=== PATIENT | female | born 1960 | race Caucasian/White ===

== ENCOUNTER 2018-12-20 15:30 | Emergency (ER) | payer OTHER ==
[~2018-12-20] VITALS: Ht 165.1 cm; Wt 99.3 kg
--- OUTSIDE RECORDS SUMMARY | 2018-12-20 15:42 | XMS REPORT | Clinical Summary ---
Author Author [facility] Organization [facility] Address Unknown Phone Unavailable Care Team Providers Care Steam Table Worker Name Role Phone PCP Unavailable Allergies Comments Active Allergy Reactions Severity Noted Date Sulfamethoxazole-Trimetho Breathing 01/09/2014 prim problems, Rash Cefaclor Breathing 01/09/2014 problems Morphine Itching 01/09/2014 Penicillins Breathing 01/09/2014 problems, Rash Medications End Date Status Medication Sig Dispensed Refills Start Date Active aspirin (ASPIRIN) 81 mg Chew and 0 chewable tablet swallow 81 mg by mouth daily. Active ferrous sulfate 325 mg Take 325 mg 0 (65 mg iron) tablet by mouth daily (with breakfast). Active Nebulizer Accessories by 1 Each 0 MiscIndications: COPD Misc.(Non-Dereje 4 (chronic obstructive g; Combo pulmonary disease) Route) route. Active pantoprazole (PROTONIX) Take 1 tablet 90 tablet 1 40 mg delayed release by mouth 4 tabletIndications: GERD daily. (gastroesophageal reflux disease) Active Levalbuterol HCl Inhale 3 mL 75 mL 1 (XOPENEX) 0.31 mg/3 mL by mouth 4 nebulizer every 8 hours solutionIndications: COPD as needed for (chronic obstructive Wheezing or pulmonary disease) Shortness of Breath. Active blood glucose Use as 1 Kit 0 meterIndications: DM directed.. 4 (diabetes mellitus) Active blood glucose test 2 times 50 Each 11 stripsIndications: DM daily. 4 (diabetes mellitus) Active lancets 28 by 100 Each 11 gaugeIndications: DM MISCELLANEOUS 4 (diabetes mellitus) route 2 times daily. Active insulin needles, Use as 3 Box 11 disposable, (NOVOFINE 30) directed with 4 30 x 1/3 " novolog needlesIndications: DM flexpen. (diabetes mellitus) Active Levalbuterol Tartrate Inhale 2 30 g 5 (XOPENEX HFA) 45 Puffs by 4 mcg/actuation mouth every 4 inhalerIndications: hours as Asthmatic bronchitis needed for Wheezing or Shortness of Breath. Active budesonide-formoterol Inhale 2 30.6 g 5 (SYMBICORT HFA) 160-4.5 Puffs by 4 mcg/actuation mouth 2 times inhalerIndications: COPD daily. (chronic obstructive pulmonary disease), Asthmatic bronchitis Active Nebulizer & Compressor by 1 Device 0 For Neb DeviIndications: Misc.(Non-Dereje 4 COPD (chronic obstructive g; Combo pulmonary disease) Route) route. Active clotrimazole (LOTRIMIN) 1 File nails 30 mL 9 % external and apply 2 4 solutionIndications: drops twice a Onychomycosis day for 1 year. Active insulin lispro (HUMALOG) Inject 20 60 mL 1 100 unit/mL Units under 5 injectionIndications: DM the skin 3 (diabetes mellitus) times daily (before meals). Active blood glucose (RELION Test blood 200 Each 5 ULTIMA) test glucose 2 5 stripsIndications: Type times daily II or unspecified type to diabetes mellitus without mention of complication, uncontrolled Active lisinopril-hydrochlorothi Take 1 tablet 90 tablet 1 azide (PRINZIDE) 10-12.5 by mouth 5 mg per tabletIndications: daily. HTN (hypertension) Active carvedilol (COREG) 3.125 Take 1 tablet 180 tablet 1 mg tabletIndications: HTN by mouth 2 5 (hypertension) times daily (with meals). Active atorvastatin (LIPITOR) 20 Take 1 tablet 90 tablet 1 mg tabletIndications: by mouth at 5 Hypertriglyceridemia bedtime nightly. Active fenofibrate Take 1 tablet 90 tablet 1 nanocrystallized (TRICOR) by mouth 5 48 mg tabletIndications: daily. Hypertriglyceridemia Active INSULIN SYRINGE 1mL Use to inject 300 Syringe 4 30GX5/16" (MONOJECT insulin 2 5 ULTRACOMFORT INSULIN SYR times daily. 1ML 30GX5/16") Use a new syringe-needleIndications syringe each : DM (diabetes mellitus) time. Active INSULIN SYRINGE 0.5mL Use to inject 300 Syringe 4 30GX5/16" (ULTRA COMFORT) insulin 3 5 syringe-needleIndications times daily. : DM (diabetes mellitus) Use a new syringe each time. Active busPIRone (BUSPAR) 10 mg Take 10 mg by 0 tablet mouth 2 times daily. Active lamoTRIgine (LAMICTAL) 25 Take 25 mg by 0 mg tablet mouth daily. Active citalopram (CELEXA) 20 mg Take 20 mg by 0 tablet mouth daily. Active gabapentin (NEURONTIN) Please start 270 capsule 0 400 mg with 1 5 capsuleIndications: DM capsule daily (diabetes mellitus) for 1 week, Then increase to 1 capsule twice daily from second week and then Increase to 1 capsule three times daily from third week and continue it.. Active cetirizine (ZYRTEC) 10 mg Take 1 tablet 90 tablet 0 tabletIndications: by mouth 5 Seasonal allergies daily as needed for Allergies. Active insulin detemir (LEVEMIR) Inject 130 mL 0 100 unit/mL subcutaneous 5 injectionIndications: 65 units in Type II or unspecified the morning type diabetes mellitus and 75 units without mention of in the complication, evening with uncontrolled food.. Active metFORMIN (GLUCOPHAGE) Take 2 60 tablet 0 500 mg tabletIndications: tablets by 9 DM (diabetes mellitus) mouth 2 times daily (with meals). 05/07/2018 Discontinued metFORMIN (GLUCOPHAGE) Take 2 360 tablet 1 500 mg tabletIndications: tablets by 5 DM (diabetes mellitus) mouth 2 times daily (with meals). Active Problems Problem Noted Date Elevated alkaline phosphatase level 11/24/2014 Thyroid nodule 07/02/2014 Diabetic neuropathy 04/17/2014 Astigmatism with presbyopia 04/16/2014 Pseudophakia, both eyes 04/16/2014 Mild non proliferative diabetic retinopathy 04/16/2014 Type II or unspecified type diabetes mellitus without mention of 02/17/2014 complication, uncontrolled DM (diabetes mellitus) 02/02/2014 GERD (gastroesophageal reflux disease) 02/02/2014 HTN (hypertension) 02/02/2014 Hypertriglyceridemia 02/02/2014 H/O intravenous drug use in remission 02/02/2014 COPD (chronic obstructive pulmonary disease) 02/02/2014 Substance induced mood disorder PTSD (post-traumatic stress disorder) Cocaine use Alcohol use Cocaine use disorder, severe, dependence Encounters Care Team Description Date Type Specialty Payton Epperson III, MD Aoshima-Kilroy, Cristin A, MD Suicidal ideation (Primary Dx); Hyperglycemia; DM (diabetes mellitus); Substance induced mood disorder; PTSD (post-traumatic stress disorder); Cocaine use; Alcohol use; Cocaine use disorder, severe, dependence 05/07/2018 Emergency Emergency Medicine - 05/08/2018 05/07/2018 Travel after 12/19/2017 Immunizations Name Administration Dates Next Due Influenza Vaccine 03/05/2014 Family History Medical History Relation Name Comments Cancer Brother liver cancer Hypertension Brother Arthritis Father Heart Father Hypertension Father Stroke Father Arthritis Mother Asthma Mother Cancer Mother breast cancer Diabetes Mother Heart Mother Hypertension Mother Hypothyroid Mother Pulmonary Mother Arthritis Sister Asthma Sister Cancer Sister breast cancer Diabetes Sister Hypertension Sister Psychiatry Sister Pulmonary Sister Relation Name Status Comments Brother Alive Brother AIDS, LIVER CANCER Brother AIDS Brother Brother Father congestive heart failure (Age 72) Mother Breast cancer (Age 71) Sister Alive 2 sisters Sister Sister Sister Sister Sister Sister Sister Social History Date Tobacco Use Types Packs/Day Years Used Current Every Day Smoker Cigarettes 1 30 Smokeless Tobacco: Never Used Tobacco Cessation: Ready to Quit: No; Counseling Given: No Drinks/Week oz/Week Comments Alcohol Use Yes Sex Assigned at Date Recorded Not on file Industry Job Start Date Occupation Not on file Not on file Not on file Travel End Travel History Travel Start No recent travel history available. Last Filed Vital Signs Reading Time Taken Comments Vital Sign 160/103 05/08/2018 10:45 AM [facility] pt just ate snack; nurse notified, zackary Blood Pressure 98 05/08/2018 10:45 AM [facility] Pulse 36.4 C (97.5 F) 05/08/2018 10:45 AM [facility] Temperature 18 05/08/2018 10:45 AM [facility] Respiratory Rate 96% 05/08/2018 10:45 AM [facility] Oxygen Saturation - - Inhaled Oxygen Concentration 98.9 kg (218 lb) 05/08/2018 12:05 AM [facility] Weight 165.1 cm (5' 5") 05/08/2018 12:05 AM [facility] Height 36.28 05/08/2018 12:05 AM [facility] Body Mass Index Plan of Treatment Health Maintenance Due Date Last Done Comments DM Foot Exam (Yearly) 01/22/1980 Cervical Cancer Scrn (3 1983 Yrs) Colorectal Cancer Scrn 01/22/2012 Annual (FIT/FOBT) Age 50 to 75 DM Retinal Exam (Yearly) 04/16/2015 04/16/2014, 01/14/2014 Breast Cancer Scrn 05/26/2015 05/26/2014 (Yearly) DM HGBA1C (Yearly) 08/05/2015 08/04/2014, 01/14/2014 Procedures Comments Procedure Name Priority Date/Time Associated Diagnosis CONSULT CLINICAL CASE Routine 05/08/2018 MANAGEMENT (RN/SW) 9:56 AM [facility] POC GLUCOSE - IN LAB Routine 05/08/2018 (STAT) 6:35 AM [facility] POC GLUCOSE - IN LAB Routine 05/07/2018 (STAT) 11:53 PM [facility] IP CONSULT WITH INSIGHT Routine 05/07/2018 11:19 PM [facility] POC GLUCOSE - IN LAB Routine 05/07/2018 (STAT) 8:12 PM [facility] BMP POC Routine 05/07/2018 5:36 PM [facility] URINE DRUG SCREEN STAT 05/07/2018 5:32 PM [facility] ENVIRONMENTAL WEB CRAWLER Routine 05/07/2018 5:31 PM [facility] SALICYLATE STAT 05/07/2018 4:40 PM [facility] ACETAMINOPHEN STAT 05/07/2018 4:40 PM [facility] CBC (WITHOUT STAT 05/07/2018 DIFFERENTIAL) 4:40 PM [facility] after 12/19/2017 Results * GLUCOSE POC (05/08/2018 6:35 AM [facility]) Only the most recent of 3 results within the time period is included. Glucose POC 321 (H) 74 - 106 mg/dL BT [facility] 1 Specimen Performing Organization Address City/State/Zipcode Phone Number [facility] 1 * BMP POC (05/07/2018 5:36 PM [facility]) CO2 POC 27 21 - 32 mmol/L [facility] 1 Chloride POC 96 (L) 98 - 107 mmol/L BT [facility] 1 Potassium POC 3.7 3.50 - 5.10 mmol/L [facility] 1 Sodium POC 135 (L) 136 - 145 mmol/L BT [facility] 1 Glucose POC 334 (H) 74 - 106 mg/dL BT [facility] 1 Urea Nitrogen 15 7 - 18 mg/dL BT [facility] POC 1 Creatinine POC 0.5 (L) 0.6 - 1.3 mg/dL BT [facility] 1 Calcium Ionized 1.15 1.15 - 1.29 mmol/L BT [facility] POC 1 Hemoglobin POC 17.7 (H) 12.0 - 16.0 g/dL BT [facility] 1 Hematocrit POC 52.0 (H) 37.0 - 47.0 % BT [facility] 1 GFR, Estimated >60 mL/min/1.73 m2 BT [facility] 1 GFR, Estim, >60 mL/min/1.73 m2 BT [facility] Afr-Am 1 Specimen Performing Organization Address City/State/Zipcode Phone Number [facility] 1 * URINE DRUG SCREEN (05/07/2018 5:32 PM [facility]) Amphetamine Negative NEG [facility] Comment: 1 Calibrated Standard: D-Methamphetamine Positive if urine level >vm=0430 ng/mL Test performed on [id number] using EMIT Immunoassay Barbiturate Negative NEG BT [facility] Comment: 1 Calibrated Standard: Secobarbital Positive if urine level is >nz=415 ng/mL Test performed on [id number] using EMIT Immunoassay Benzodiazepine Negative NEG BT [facility] Comment: 1 Calibrated Standard: Lormethazepam Positive if urine level is >ml=303 ng/mL Test performed on [id number] using EMIT Immunoassay Cannabinoid Negative NEG BT [facility] Comment: 1 Calibrated Standard: 11 nor-delta(9)-THC carboxylic a Positive if urine level >or=50 Test performed on [id number] using EMIT Immunoassay Cocaine Positive (A) NEG BT [facility] Comment: 1 Calibrated Standard: Benzoylecgonine Positive if urine level >zn=283 Test performed on [id number] using EMIT Immunoassay Opiate, Ur Negative NEG BT [facility] Comment: 1 Calibrated Standard: Morphine Positive if urine level >ea=031 Test performed on [id number] using EMIT Immunoassay PCP Negative NEG BT [facility] Comment: 1 Calibrated Standard: Phencyclidine Positive if urine level >or=25 Test performed on [id number] using EMIT Immunoassay Urine Toxicology Screen results are to be used only for Medical purposes. Specimen Urine Performing Organization Address [facility] Phone Number [facility] 1 * SALICYLATE (05/07/2018 4:40 PM [facility]) Salicylate <2.5 (L)Comment: Test 2.8 - 30 mg/dL BT MAIN-STATION performed on [id number] using EMIT 1 Immunoassay Specimen Blood Performing Organization Address [facility] Phone Number [facility] 1 * CBC (05/07/2018 4:40 PM [facility]) WBC 9.8 4.5 - 11.0 K/uL BT MAIN-STATION 2 RBC 5.86 (H) 4.20 - 5.40 M/uL BT MA[facility] 2 Hemoglobin 15.7 12.0 - 16.0 g/dL BT MAIN-ST[facility] 2 Hematocrit 47.2 (H) 37.0 - 47.0 % BT [facility] 2 MCV 81 (L) 82 - 92 fL BT MAIN-[facility] 2 MCH 26.8 (L) 27.0 - 32.0 pg BT MAIN-STATION 2 MCHC 33.3 32.0 - 36.0 g/dL BT MA[facility] 2 RDW 43.8 36.4 - 46.3 fL BT MAIN-STATION 2 Platelets 296 150 - 400 K/uL BT MAIN[facility]ATION 2 Mean Platelet 9.9 9.4 - 12.4 fL BT [facility] Volume 2 Percent NRBC 0.0 BT MAIN-STATION 2 Absolute NRBC 0.00 BT MAIN-STATION 2 Specimen Blood Performing Organization Address [facility] Phone Number [facility] 2 * ACETAMINOPHEN (05/07/2018 4:40 PM [facility]) Acetaminophen <10.00 (L)Comment: Test 10 - 30 ug/mL BT MAIN-[facility]ATION performed on [id number] using EMIT 1 Immunoassay Specimen Blood Performing Organization Address [facility] Phone Number [facility] 1 after 12/19/2017 Insurance Type Payer Benefit Subscriber ID Effective Phone Address Plan / Dates Group [facility] xxxxxxxxx 2016- [phone] [employer] Present [id number] [place] [address] (Home) [place] [address]
--- OUTSIDE RECORDS SUMMARY | 2018-12-20 15:42 | XMS REPORT ---
[facility] Address Unknown Phone Unavailable Care Team Providers Care Take Down Inspector Name Role Phone DR Britt CHASE Unavailable Unavailable Payers Payer Name Policy Type Policy Number Effective Date Expiration Date Problems This patient has no known problems. Allergies, Adverse Reactions, Alerts Allergy Name Allergy Type Status Severity Reaction(s) Onset Date Inactive Date Treating Clinician Comments Penicillins DA Active 2018-12-13 00:00:00 Sulfa (Sulfonamide Antibiotics) DA Active U 2018-12-13 00:00:00 morphine DA Active U 2018-12-13 00:00:00 cefaclor DA Active MO 2018-12-13 00:00:00 sulfamethoxazole DA Active 2018-12-13 00:00:00 trimethoprim DA Active SV 2018-12-13 00:00:00 Penicillins DA Active SV 2018-08-26 00:00:00 Sulfa (Sulfonamide Antibiotics) DA Active U 2018-08-26 00:00:00 morphine DA Active U 2018-08-26 00:00:00 cefaclor DA Active MO 2018-08-26 00:00:00 sulfamethoxazole DA Active SV 2018-08-26 00:00:00 trimethoprim DA Active SV 2018-08-26 00:00:00 Penicillins DA Active SV 2018-07-13 00:00:00 Sulfa (Sulfonamide Antibiotics) DA Active U 2018-07-13 00:00:00 morphine DA Active U 2018-07-13 00:00:00 cefaclor DA Active MO 2018-07-13 00:00:00 sulfamethoxazole DA Active SV 2018-07-13 00:00:00 trimethoprim DA Active SV 2018-07-13 00:00:00 Penicillins DA Active SV 2017-03-17 00:00:00 Sulfa (Sulfonamide Antibiotics) DA Active U 2017-03-17 00:00:00 morphine DA Active U 2017-03-17 00:00:00 cefaclor DA Active MO 2017-03-17 00:00:00 sulfamethoxazole DA Active SV 2017-03-17 00:00:00 trimethoprim DA Active SV 2017-03-17 00:00:00 Medications This patient has no known medications. Encounters Start Date/Time End Date/Time Encounter Type Admission Type Attending [facility] Facility Care Department Encounter ID 2018-05-15 18:01:00 2018-05-15 23:05:00 Emergency [facility] [id number] 2018-05-07 16:43:36 2018-05-07 16:43:36 Emergency [facility] [id number] Results Test Description Test Time Test Comments Text Results Atomic Results Result Comments BASIC METABOLIC PANEL 2018-12-13 21:46:00 SODIUM (test code=NA) 137 mmol/L 136-145 POTASSIUM (test code=K) 4.2 mmol/L 3.5-5.1 CHLORIDE (test code=CL) 99.0 mmol/L 98-107 CARBON DIOXIDE (test code=CO2) 26.0 mmol/L 21-32 ANION GAP (test code=GAP) 16.2 10-20 GLUCOSE (test code=GLU) 383 mg/dL 74-106 BLOOD UREA NITROGEN (test code=BUN) 15 mg/dL 7-18 GLOMERULAR FILTRATION RATE (test code=GFR) > 60 mL/min >=60 Estimated GFR by using Modified MDRD formula.Chronic kidney disease is defined as either kidney damageor GFR <60 mL/min/1.73 m2 for >3 months. CREATININE (test code=CREAT) 0.90 mg/dL 0.55-1.02 Note change in reference range due to change in reagent. BUN/CREATININE RATIO (test code=BUN/CREA) 17.1 10-20 CALCIUM (test code=CA) 9.8 mg/dL 8.5-10.1 HEPATIC FUNCTION [id number] 21:46:00* Test Item Value Reference Range Comments TOTAL PROTEIN (test code=PROT) 7.8 gram/dL 6.4-8.2 ALBUMIN (test code=ALB) 3.8 g/dL 3.4-5.0 GLOBULIN (test code=GLOB) 4.0 gram/dL 2.7-4.2 ALBUMIN/GLOBULIN RATIO (test code=A/G) 1.0 0.75-1.50 BILIRUBIN TOTAL (test code=BILT) 0.40 mg/dL 0.0-1.0 BILIRUBIN DIRECT (test code=BILD) 0.10 mg/dL 0.0-0.20 SGOT/AST (test code=AST) 12 IUnit/L 15-37 SGPT/ALT (test code=ALT) 19 IUnit/L 12-78 ALKALINE PHOSPHATASE TOTAL (test code=ALKP) 151 IUnit/L 45-117 Note change in reference range due to change in reagent. [id number] 21:46:00* Test Item Value Reference Range Comments LIPASE (test code=LIP) 95 U/L 73.0-393.0 BASIC METABOLIC [id number] 21:30:00* Test Item Value Reference Range Comments SODIUM (test code=NA) 137 mmol/L 136-145 POTASSIUM (test code=K) 4.2 mmol/L 3.5-5.1 CHLORIDE (test code=CL) 99.0 mmol/L 98-107 CARBON DIOXIDE (test code=CO2) mmol/L 21-32 ANION GAP (test code=GAP) 10-20 GLUCOSE (test code=GLU) mg/dL 74-106 BLOOD UREA NITROGEN (test code=BUN) mg/dL 7-18 GLOMERULAR FILTRATION RATE (test code=GFR) mL/min >=60 CREATININE (test code=CREAT) mg/dL 0.55-1.02 BUN/CREATININE RATIO (test code=BUN/CREA) 10-20 CALCIUM (test code=CA) mg/dL 8.5-10.1 HEPATIC FUNCTION [id number] 21:30:00* Test Item Value Reference Range Comments TOTAL PROTEIN (test code=PROT) gram/dL 6.4-8.2 ALBUMIN (test code=ALB) g/dL 3.4-5.0 GLOBULIN (test code=GLOB) gram/dL 2.7-4.2 ALBUMIN/GLOBULIN RATIO (test code=A/G) 0.75-1.50 BILIRUBIN TOTAL (test code=BILT) mg/dL 0.0-1.0 BILIRUBIN DIRECT (test code=BILD) mg/dL 0.0-0.20 SGOT/AST (test code=AST) IUnit/L 15-37 SGPT/ALT (test code=ALT) IUnit/L 12-78 ALKALINE PHOSPHATASE TOTAL (test code=ALKP) IUnit/L 45-117 [id number] 21:30:00* Test Item Value Reference Range Comments LIPASE (test code=LIP) U/L 73.0-393.0 URINALYSIS [id number] 21:03:00* Test Item Value Reference Range Comments UA COLOR (test code=COLU) Light-Yellow YELLOW UA APPEARANCE (test code=APPU) CLEAR CLEAR UA GLUCOSE DIPSTICK (test code=DGLUU) >1000 (4+) mg/dL NEGATIVE UA BILIRUBIN DIPSTICK (test code=BILU) NEGATIVE mg/dL NEGATIVE UA KETONE DIPSTICK (test code=KETU) NEGATIVE mg/dL NEGATIVE UA SPECIFIC GRAVITY (test code=SGU) 1.038 1.001-1.035 UA BLOOD DIPSTICK (test code=DORINA) Negative mg/dL NEGATIVE UA PH DIPSTICK (test code=DANIELA) 6.0 5.0-8.0 UA PROTEIN DIPSTICK (test code=PROU) 10 (Trace) mg/dL NEGATIVE UA UROBILINIOGEN DIPSTICK (test code=URO) Normal mg/dL NEGATIVE UA NITRITE DIPSTICK (test code=CATE) NEGATIVE NEGATIVE UA LEUKOCYTE ESTERASE W REFLEX (test code=LEUUR) 250 Cheli/uL (2+) Cheli/uL NEGATIVE UA WBC (test code=WBCU) 11-20 per HPF 0-5 UA RBC (test code=RBCU) 3-5 #/HPF 0-5 UA EPITHELIAL CELLS (test code=EPIU) MOD per HPF FEW UA BACTERIA (test code=BACU) NONE SEEN #/HPF NONE UA HYALINE CAST (test code=HYALU) 0-2 #/LPF 0-5 UA MUCUS (test code=MUCU) FEW #/LPF FEW Urine Source? Clean [id number] 21:01:00* Test Item Value Reference Range Comments GLYCOSYLATED HEMOGLOBIN (HA1C) (test code=GLYHGB) 10.4 % HbA1 4.8-6.0 ESTIMATED AVERAGE GLUCOSE (test code=EAG) 252 MG/DL CBC W/O [id number] 20:32:00* Test Item Value Reference Range Comments WHITE BLOOD CELL (test code=WBC) 10.4 K/mm3 4.5-12.5 RED BLOOD CELL (test code=RBC) 5.15 mill/mm3 3.7-5.2 HEMOGLOBIN (test code=HGB) 14.3 gram/dL 11.5-15.5 HEMATOCRIT (test code=HCT) 41.2 % 36.0-46.0 MEAN CELL VOLUME (test code=MCV) 80.0 fL 80-98 MEAN CELL HGB (test code=MCH) 27.8 picogram 27.0-33.0 MEAN CELL HGB CONCETRATION (test code=MCHC) 34.7 gram/dL 33.0-36.0 RED CELL DISTRIBUTION WIDTH (test code=RDW) 14.0 % 11.6-16.2 PLATELET COUNT (test code=PLT) 273 K/mm3 150-450 MEAN PLATELET VOLUME (test code=MPV) 9.5 fL 6.7-11.0 CBC W/O [id number] 20:28:00* Test Item Value Reference Range Comments WHITE BLOOD CELL (test code=WBC) K/mm3 4.5-12.5 RED BLOOD CELL (test code=RBC) mill/mm3 3.7-5.2 HEMOGLOBIN (test code=HGB) 14.3 gram/dL 11.5-15.5 HEMATOCRIT (test code=HCT) 41.2 % 36.0-46.0 MEAN CELL VOLUME (test code=MCV) fL 80-98 MEAN CELL HGB (test code=MCH) picogram 27.0-33.0 MEAN CELL HGB CONCETRATION (test code=MCHC) gram/dL 33.0-36.0 RED CELL DISTRIBUTION WIDTH (test code=RDW) % 11.6-16.2 PLATELET COUNT (test code=PLT) K/mm3 150-450 MEAN PLATELET VOLUME (test code=MPV) fL 6.7-11.0 [id number] 16:44:00* Test Item Value Reference Range Comments GLUBED (test code=GLUBED) 223 mg/dL 74-106 [facility] [id number] 12:34:00* Test Item Value Reference Range Comments GLUBED (test code=GLUBED) 171 mg/dL 74-106 [facility] tailing machine [facility] [id number] 09:08:00* Test Item Value Reference Range Comments GLUBED (test code=GLUBED) 254 mg/dL 74-106 [facility] tailing machine [facility] VANCOMYCIN [id number] 05:29:00* Test Item Value Reference Range Comments VANCOMYCIN TROUGH (test code=VANCT) 6.0 ug/mL 10-20 SPECIMEN COMMENTS: VANC TROUGH COMMENTS TO CATCHER FILTER TIP: PLEASE DRAW 30 MIN PRIO R TO DOSEBASIC METABOLIC [id number] 05:23:00* Test Item Value Reference Range Comments SODIUM (test code=NA) 139 mmol/L 136-145 POTASSIUM (test code=K) 4.3 mmol/L 3.5-5.1 CHLORIDE (test code=CL) 106.0 mmol/L 98-107 CARBON DIOXIDE (test code=CO2) 29.0 mmol/L 21-32 ANION GAP (test code=GAP) 8.3 10-20 GLUCOSE (test code=GLU) 244 mg/dL 74-106 BLOOD UREA NITROGEN (test code=BUN) 17 mg/dL 7-18 GLOMERULAR FILTRATION RATE (test code=GFR) > 60 mL/min >=60 Estimated GFR by using Modified MDRD formula.Chronic kidney disease is defined as either kidney damageor GFR <60 mL/min/1.73 m2 for >3 months. CREATININE (test code=CREAT) 0.60 mg/dL 0.55-1.02 Note change in reference range due to change in reagent. BUN/CREATININE RATIO (test code=BUN/CREA) 28.3 10-20 CALCIUM (test code=CA) 8.7 mg/dL 8.5-10.1 BASIC METABOLIC [id number] 05:16:00* Test Item Value Reference Range Comments SODIUM (test code=NA) 139 mmol/L 136-145 POTASSIUM (test code=K) 4.3 mmol/L 3.5-5.1 CHLORIDE (test code=CL) 106.0 mmol/L 98-107 CARBON DIOXIDE (test code=CO2) mmol/L 21-32 ANION GAP (test code=GAP) 10-20 GLUCOSE (test code=GLU) mg/dL 74-106 BLOOD UREA NITROGEN (test code=BUN) mg/dL 7-18 GLOMERULAR FILTRATION RATE (test code=GFR) mL/min >=60 CREATININE (test code=CREAT) mg/dL 0.55-1.02 BUN/CREATININE RATIO (test code=BUN/CREA) 10-20 CALCIUM (test code=CA) mg/dL 8.5-10.1 CBC W/AUTO [id number] 05:03:00* Test Item Value Reference Range Comments WHITE BLOOD CELL (test code=WBC) 6.5 K/mm3 4.5-12.5 RED BLOOD CELL (test code=RBC) 4.44 mill/mm3 3.7-5.2 HEMOGLOBIN (test code=HGB) 12.0 gram/dL 11.5-15.5 HEMATOCRIT (test code=HCT) 36.5 % 36.0-46.0 MEAN CELL VOLUME (test code=MCV) 82.2 fL 80-98 MEAN CELL HGB (test code=MCH) 27.0 picogram 27.0-33.0 MEAN CELL HGB CONCETRATION (test code=MCHC) 32.9 gram/dL 33.0-36.0 RED CELL DISTRIBUTION WIDTH (test code=RDW) 13.3 % 11.6-16.2 RED CELL DISTRIBUTION WIDTH SD (test code=RDW-SD) 39.8 fL 37.0-51.0 PLATELET COUNT (test code=PLT) 219 K/mm3 150-450 MEAN PLATELET VOLUME (test code=MPV) 8.9 fL 6.7-11.0 NEUTROPHIL % (test code=NT%) 53.7 % 39.0-69.0 IMMATURE GRANULOCYTE % (test code=IG%) 0.3 % 0.0-5.0 LYMPHOCYTE % (test code=LY%) 38.0 % 25.0-55.0 MONOCYTE % (test code=MO%) 6.0 % 0.0-10.0 EOSINOPHIL % (test code=EO%) 1.8 % 0.0-5.0 BASOPHIL % (test code=BA%) 0.2 % 0.0-1.0 NUCLEATED RBC % (test code=NRBC%) 0.0 % 0-0 NEUTROPHIL # (test code=NT#) 3.49 K/mm3 1.8-7.7 IMMATURE GRANULOCYTE # (test code=IG#) 0.02 x10 3/uL 0-0.03 LYMPHOCYTE # (test code=LY#) 2.47 K/mm3 1.0-5.0 MONOCYTE # (test code=MO#) 0.39 K/mm3 0-0.8 EOSINOPHIL # (test code=EO#) 0.12 K/mm3 0.0-0.5 BASOPHIL # (test code=BA#) 0.01 K/mm3 0.0-0.2 NUCLEATED RBC # (test code=NRBC#) 0.00 K/mm3 0.0-0.1 CBC W/AUTO [id number] 04:59:00* Test Item Value Reference Range Comments WHITE BLOOD CELL (test code=WBC) K/mm3 4.5-12.5 RED BLOOD CELL (test code=RBC) mill/mm3 3.7-5.2 HEMOGLOBIN (test code=HGB) 12.0 gram/dL 11.5-15.5 HEMATOCRIT (test code=HCT) 36.5 % 36.0-46.0 MEAN CELL VOLUME (test code=MCV) fL 80-98 MEAN CELL HGB (test code=MCH) picogram 27.0-33.0 MEAN CELL HGB CONCETRATION (test code=MCHC) gram/dL 33.0-36.0 RED CELL DISTRIBUTION WIDTH (test code=RDW) % 11.6-16.2 RED CELL DISTRIBUTION WIDTH SD (test code=RDW-SD) fL 37.0-51.0 PLATELET COUNT (test code=PLT) K/mm3 150-450 MEAN PLATELET VOLUME (test code=MPV) fL 6.7-11.0 NEUTROPHIL % (test code=NT%) % 39.0-69.0 IMMATURE GRANULOCYTE % (test code=IG%) % 0.0-5.0 LYMPHOCYTE % (test code=LY%) % 25.0-55.0 MONOCYTE % (test code=MO%) % 0.0-10.0 EOSINOPHIL % (test code=EO%) % 0.0-5.0 BASOPHIL % (test code=BA%) % 0.0-1.0 NEUTROPHIL # (test code=NT#) K/mm3 1.8-7.7 LYMPHOCYTE # (test code=LY#) K/mm3 1.0-5.0 MONOCYTE # (test code=MO#) K/mm3 0-0.8 EOSINOPHIL # (test code=EO#) K/mm3 0.0-0.5 BASOPHIL # (test code=BA#) K/mm3 0.0-0.2 [id number] 23:39:00* Test Item Value Reference Range Comments GLUBED (test code=GLUBED) 237 mg/dL 74-106 [facility]formed by certified tailing [facility] [id number] 20:49:00* Test Item Value Reference Range Comments GLUBED (test code=GLUBED) 303 mg/dL 74-106 Performed by certified tailing machine [facility] VANCOMYCIN [id number] 19:21:00* Test Item Value Reference Range Comments VANCOMYCIN TROUGH (test code=VANCT) 24.0 ug/mL 10-20 [id number] 17:04:00* Test Item Value Reference Range Comments GLUBED (test code=GLUBED) 279 mg/dL 74-106 Performed by certified tailing machine operator [facility] - MRI LOW EXT W/O CONT [id number] 11:53:00 FAX: Joseph West MD [phone] [place]: [address] St: [facility] FAX: Jyotsna Marin MD [phone] Name: FRANCINE ENCARNACION [facility] : 1960 Age/S: 58/F Gene Smith Unit #: [id number] Loc: [id number] [address] [address] Phys: Jyotsna Marin MD Acct: [id number] Dis Date: Status: ADM IN PHONE #: [phone] Exam Date: 08/28/2018 1138 FAX #: [phone] Reason: rule out osteomyelitis EXAMS: CPT CODE: [id number] MRI L[place] EX[place] W/[place] [address] HISTORY: Osteomyelitis. COMPARISON: August 26, 2018 and August 08, 2018 MRI right foot without contrast: No bony erosion or destruction or significant edematous changes of the fo refoot. No evidence for osteomyelitis. Soft tissue swelling along the plan tar surface of the first digit suggestive of cellulitis. No drainable absc ess or fluid collections. The visualized tarsal bones are unremarkable. Tendinitis with and moderate peritendinous fluid along the flexor hallucis tendon. Rest of the visualized tendons appear unremarkable. A chilles tendon is within normal limits. Sinus tarsi ligaments are unremark able. No osteochondral lesion of the talus. Unremarkable sinus tarsi ligam ents. IMPRESSION: Cellulitis of the distal fi rst phalanx without drainable abscess mostly along the plantar surface. No osteomyelitis or erosive or destructive change. Mild tendinitis of th e flexor hallucis longus tendon. at 1153 Reported and emma d by: Robert Hill M.D. CC: Joseph Wets MD; Jyotsna Marin Technologist: Danie Herrera)(MR) Trnscrd Date/Time/By: 08/28/2018 (6965) : By: [email or web address] Orig P rint D/T: S: 08/28/2018 (6160) PAGE 1 Signed Report [id number] 08:59:00* Test Item Value Reference Range Comments GLUBED (test code=GLUBED) 184 mg/dL 74-106 Performed by certified tailing machine operator [facility] BASIC METABOLIC [id number] 05:27:00* Test Item Value Reference Range Comments SODIUM (test code=NA) 137 mmol/L 136-145 POTASSIUM (test code=K) 4.2 mmol/L 3.5-5.1 CHLORIDE (test code=CL) 104.0 mmol/L 98-107 CARBON DIOXIDE (test code=CO2) 27.0 mmol/L 21-32 ANION GAP (test code=GAP) 10.2 10-20 GLUCOSE (test code=GLU) 248 mg/dL 74-106 BLOOD UREA NITROGEN (test code=BUN) 20 mg/dL 7-18 GLOMERULAR FILTRATION RATE (test code=GFR) > 60 mL/min >=60 Estimated GFR by using Modified MDRD formula.Chronic kidney disease is defined as either kidney damageor GFR <60 mL/min/1.73 m2 for >3 months. CREATININE (test code=CREAT) 0.60 mg/dL 0.55-1.02 Note change in reference range due to change in reagent. BUN/CREATININE RATIO (test code=BUN/CREA) 33.3 10-20 CALCIUM (test code=CA) 8.6 mg/dL 8.5-10.1 BASIC METABOLIC [id number] 05:18:00* Test Item Value Reference Range Comments SODIUM (test code=NA) 137 mmol/L 136-145 POTASSIUM (test code=K) 4.2 mmol/L 3.5-5.1 CHLORIDE (test code=CL) 104.0 mmol/L 98-107 CARBON DIOXIDE (test code=CO2) mmol/L 21-32 ANION GAP (test code=GAP) 10-20 GLUCOSE (test code=GLU) mg/dL 74-106 BLOOD UREA NITROGEN (test code=BUN) mg/dL 7-18 GLOMERULAR FILTRATION RATE (test code=GFR) mL/min >=60 CREATININE (test code=CREAT) mg/dL 0.55-1.02 BUN/CREATININE RATIO (test code=BUN/CREA) 10-20 CALCIUM (test code=CA) mg/dL 8.5-10.1 BASIC METABOLIC [id number] 05:18:00* Test Item Value Reference Range Comments SODIUM (test code=NA) 137 mmol/L 136-145 POTASSIUM (test code=K) 4.2 mmol/L 3.5-5.1 CHLORIDE (test code=CL) 104.0 mmol/L 98-107 CARBON DIOXIDE (test code=CO2) 27.0 mmol/L 21-32 ANION GAP (test code=GAP) 10.2 10-20 GLUCOSE (test code=GLU) mg/dL 74-106 BLOOD UREA NITROGEN (test code=BUN) 20 mg/dL 7-18 GLOMERULAR FILTRATION RATE (test code=GFR) mL/min >=60 CREATININE (test code=CREAT) mg/dL 0.55-1.02 BUN/CREATININE RATIO (test code=BUN/CREA) 10-20 CALCIUM (test code=CA) 8.6 mg/dL 8.5-10.1 CBC W/AUTO [id number] 05:07:00* Test Item Value Reference Range Comments WHITE BLOOD CELL (test code=WBC) 6.9 K/mm3 4.5-12.5 RED BLOOD CELL (test code=RBC) 4.30 mill/mm3 3.7-5.2 HEMOGLOBIN (test code=HGB) 11.6 gram/dL 11.5-15.5 HEMATOCRIT (test code=HCT) 35.9 % 36.0-46.0 MEAN CELL VOLUME (test code=MCV) 83.5 fL 80-98 MEAN CELL HGB (test code=MCH) 27.0 picogram 27.0-33.0 MEAN CELL HGB CONCETRATION (test code=MCHC) 32.3 gram/dL 33.0-36.0 RED CELL DISTRIBUTION WIDTH (test code=RDW) 13.5 % 11.6-16.2 RED CELL DISTRIBUTION WIDTH SD (test code=RDW-SD) 41.2 fL 37.0-51.0 PLATELET COUNT (test code=PLT) 190 K/mm3 150-450 MEAN PLATELET VOLUME (test code=MPV) 9.0 fL 6.7-11.0 NEUTROPHIL % (test code=NT%) 49.3 % 39.0-69.0 IMMATURE GRANULOCYTE % (test code=IG%) 0.4 % 0.0-5.0 LYMPHOCYTE % (test code=LY%) 42.5 % 25.0-55.0 MONOCYTE % (test code=MO%) 5.9 % 0.0-10.0 EOSINOPHIL % (test code=EO%) 1.6 % 0.0-5.0 BASOPHIL % (test code=BA%) 0.3 % 0.0-1.0 NUCLEATED RBC % (test code=NRBC%) 0.0 % 0-0 NEUTROPHIL # (test code=NT#) 3.40 K/mm3 1.8-7.7 IMMATURE GRANULOCYTE # (test code=IG#) 0.03 x10 3/uL 0-0.03 LYMPHOCYTE # (test code=LY#) 2.94 K/mm3 1.0-5.0 MONOCYTE # (test code=MO#) 0.41 K/mm3 0-0.8 EOSINOPHIL # (test code=EO#) 0.11 K/mm3 0.0-0.5 BASOPHIL # (test code=BA#) 0.02 K/mm3 0.0-0.2 NUCLEATED RBC # (test code=NRBC#) 0.00 K/mm3 0.0-0.1 MANUAL DIFF REQUIRED (test code=MDIFF) NO [id number] 21:28:00* Test Item Value Reference Range Comments GLUBED (test code=GLUBED) 281 mg/dL 74-106 Performed by certified tailing machine operator at [facility] [id number] 16:55:00* Test Item Value Reference Range Comments GLUBED (test code=GLUBED) 250 mg/dL 74-106 Performed by certified tailing machine operator at [facility] PROCALCITONIN (PCT)2018-08-27 14:49:00* Test Item Value Reference Range Comments PROCALCITONIN (PCT) (test code=PROCAL) < 0.05 ng/ml Concentration Interpretation (ng/mL) <0.51 Sepsis is not likely. Local bacterial infection is possible. (LOW RISK for progression to Sepsis) 0.51 - 2.00 Sepsis is possible, but other conditions are known to elevate PCT as well. (MODERATE RISK for progression to Sepsis) > 2.00 Sepsis is likely, unless other causes are known. (HIGH RISK for progression to Severe Sepsis or Septic Shock) 10.00 High likelihood of Severe Sepsis or Septic or higher Shock. *Increased PCT levels may not always be related to systemic bacterial infection.*Low PCT levels do not automatically exclude the presence of bacterial infection.*All results should be interpreted taking into account the patients history. C REACTIVE [id number] 14:22:00* Test Item Value Reference Range Comments C REACTIVE PROTEIN (test code=CRP) 3.99 mg/dL 0-0.3 [id number] 12:12:00* Test Item Value Reference Range Comments GLUBED (test code=GLUBED) 233 mg/dL 74-106 Performed by certified tailing machine operator at [facility] CBC W/AUTO [id number] 12:07:00* Test Item Value Reference Range Comments WHITE BLOOD CELL (test code=WBC) 8.1 K/mm3 4.5-12.5 RED BLOOD CELL (test code=RBC) 4.46 mill/mm3 3.7-5.2 HEMOGLOBIN (test code=HGB) 12.1 gram/dL 11.5-15.5 HEMATOCRIT (test code=HCT) 37.5 % 36.0-46.0 MEAN CELL VOLUME (test code=MCV) 84.1 fL 80-98 MEAN CELL HGB (test code=MCH) 27.1 picogram 27.0-33.0 MEAN CELL HGB CONCETRATION (test code=MCHC) 32.3 gram/dL 33.0-36.0 RED CELL DISTRIBUTION WIDTH (test code=RDW) 13.6 % 11.6-16.2 RED CELL DISTRIBUTION WIDTH SD (test code=RDW-SD) 42.0 fL 37.0-51.0 PLATELET COUNT (test code=PLT) 185 K/mm3 150-450 RESULT VERIFIED BY REPEAT ANALYSIS MEAN PLATELET VOLUME (test code=MPV) 9.3 fL 6.7-11.0 NEUTROPHIL % (test code=NT%) 66.4 % 39.0-69.0 IMMATURE GRANULOCYTE % (test code=IG%) 0.5 % 0.0-5.0 LYMPHOCYTE % (test code=LY%) 25.7 % 25.0-55.0 MONOCYTE % (test code=MO%) 5.6 % 0.0-10.0 EOSINOPHIL % (test code=EO%) 1.7 % 0.0-5.0 BASOPHIL % (test code=BA%) 0.1 % 0.0-1.0 NUCLEATED RBC % (test code=NRBC%) 0.0 % 0-0 NEUTROPHIL # (test code=NT#) 5.34 K/mm3 1.8-7.7 IMMATURE GRANULOCYTE # (test code=IG#) 0.04 x10 3/uL 0-0.03 LYMPHOCYTE # (test code=LY#) 2.07 K/mm3 1.0-5.0 MONOCYTE # (test code=MO#) 0.45 K/mm3 0-0.8 EOSINOPHIL # (test code=EO#) 0.14 K/mm3 0.0-0.5 BASOPHIL # (test code=BA#) 0.01 K/mm3 0.0-0.2 NUCLEATED RBC # (test code=NRBC#) 0.00 K/mm3 0.0-0.1 MANUAL DIFF REQUIRED (test code=MDIFF) NO, ONLY SCAN NEEDED DIFFERENTIAL [id number] 12:07:00* Test Item Value Reference Range Comments STAIN ACCEPTABILITY (test code=STN ACCEPTABLE) STAIN ACCEPTABLE PLATELET ESTIMATE (test code=PLTEST) ADEQUATE PLATELET MORPHOLOGY (test code=PLTMORPH) NORMAL CBC W/AUTO [id number] 11:15:00* Test Item Value Reference Range Comments WHITE BLOOD CELL (test code=WBC) 8.1 K/mm3 4.5-12.5 RED BLOOD CELL (test code=RBC) 4.46 mill/mm3 3.7-5.2 HEMOGLOBIN (test code=HGB) 12.1 gram/dL 11.5-15.5 HEMATOCRIT (test code=HCT) 37.5 % 36.0-46.0 MEAN CELL VOLUME (test code=MCV) 84.1 fL 80-98 MEAN CELL HGB (test code=MCH) 27.1 picogram 27.0-33.0 MEAN CELL HGB CONCETRATION (test code=MCHC) 32.3 gram/dL 33.0-36.0 RED CELL DISTRIBUTION WIDTH (test code=RDW) 13.6 % 11.6-16.2 RED CELL DISTRIBUTION WIDTH SD (test code=RDW-SD) 42.0 fL 37.0-51.0 PLATELET COUNT (test code=PLT) 185 K/mm3 150-450 RESULT VERIFIED BY REPEAT ANALYSIS MEAN PLATELET VOLUME (test code=MPV) 9.3 fL 6.7-11.0 NEUTROPHIL % (test code=NT%) 66.4 % 39.0-69.0 IMMATURE GRANULOCYTE % (test code=IG%) 0.5 % 0.0-5.0 LYMPHOCYTE % (test code=LY%) 25.7 % 25.0-55.0 MONOCYTE % (test code=MO%) 5.6 % 0.0-10.0 EOSINOPHIL % (test code=EO%) 1.7 % 0.0-5.0 BASOPHIL % (test code=BA%) 0.1 % 0.0-1.0 NUCLEATED RBC % (test code=NRBC%) 0.0 % 0-0 NEUTROPHIL # (test code=NT#) 5.34 K/mm3 1.8-7.7 IMMATURE GRANULOCYTE # (test code=IG#) 0.04 x10 3/uL 0-0.03 LYMPHOCYTE # (test code=LY#) 2.07 K/mm3 1.0-5.0 MONOCYTE # (test code=MO#) 0.45 K/mm3 0-0.8 EOSINOPHIL # (test code=EO#) 0.14 K/mm3 0.0-0.5 BASOPHIL # (test code=BA#) 0.01 K/mm3 0.0-0.2 NUCLEATED RBC # (test code=NRBC#) 0.00 K/mm3 0.0-0.1 MANUAL DIFF REQUIRED (test code=MDIFF) NO, ONLY SCAN NEEDED DIFFERENTIAL [id number] 11:15:00* Test Item Value Reference Range Comments STAIN ACCEPTABILITY (test code=STN ACCEPTABLE) CABOT RINGS (test code=CAB) MORPHOLOGY COMMENT (test code=MOC) PLATELET ESTIMATE (test code=PLTEST) PLATELET MORPHOLOGY (test code=PLTMORPH) CBC W/AUTO [id number] 11:15:00* Test Item Value Reference Range Comments WHITE BLOOD CELL (test code=WBC) 8.1 K/mm3 4.5-12.5 RED BLOOD CELL (test code=RBC) 4.46 mill/mm3 3.7-5.2 HEMOGLOBIN (test code=HGB) 12.1 gram/dL 11.5-15.5 HEMATOCRIT (test code=HCT) 37.5 % 36.0-46.0 MEAN CELL VOLUME (test code=MCV) 84.1 fL 80-98 MEAN CELL HGB (test code=MCH) 27.1 picogram 27.0-33.0 MEAN CELL HGB CONCETRATION (test code=MCHC) 32.3 gram/dL 33.0-36.0 RED CELL DISTRIBUTION WIDTH (test code=RDW) 13.6 % 11.6-16.2 RED CELL DISTRIBUTION WIDTH SD (test code=RDW-SD) 42.0 fL 37.0-51.0 PLATELET COUNT (test code=PLT) 185 K/mm3 150-450 RESULT VERIFIED BY REPEAT ANALYSIS MEAN PLATELET VOLUME (test code=MPV) 9.3 fL 6.7-11.0 NEUTROPHIL % (test code=NT%) 66.4 % 39.0-69.0 IMMATURE GRANULOCYTE % (test code=IG%) 0.5 % 0.0-5.0 LYMPHOCYTE % (test code=LY%) 25.7 % 25.0-55.0 MONOCYTE % (test code=MO%) 5.6 % 0.0-10.0 EOSINOPHIL % (test code=EO%) 1.7 % 0.0-5.0 BASOPHIL % (test code=BA%) 0.1 % 0.0-1.0 NUCLEATED RBC % (test code=NRBC%) 0.0 % 0-0 NEUTROPHIL # (test code=NT#) 5.34 K/mm3 1.8-7.7 IMMATURE GRANULOCYTE # (test code=IG#) 0.04 x10 3/uL 0-0.03 LYMPHOCYTE # (test code=LY#) 2.07 K/mm3 1.0-5.0 MONOCYTE # (test code=MO#) 0.45 K/mm3 0-0.8 EOSINOPHIL # (test code=EO#) 0.14 K/mm3 0.0-0.5 BASOPHIL # (test code=BA#) 0.01 K/mm3 0.0-0.2 NUCLEATED RBC # (test code=NRBC#) 0.00 K/mm3 0.0-0.1 MANUAL DIFF REQUIRED (test code=MDIFF) NO, ONLY SCAN NEEDED DIFFERENTIAL [id number] 11:15:00* Test Item Value Reference Range Comments STAIN ACCEPTABILITY (test code=STN ACCEPTABLE) CABOT RINGS (test code=CAB) MORPHOLOGY COMMENT (test code=MOC) PLATELET ESTIMATE (test code=PLTEST) PLATELET MORPHOLOGY (test code=PLTMORPH) CBC W/AUTO [id number] 11:15:00* Test Item Value Reference Range Comments WHITE BLOOD CELL (test code=WBC) 8.1 K/mm3 4.5-12.5 RED BLOOD CELL (test code=RBC) 4.46 mill/mm3 3.7-5.2 HEMOGLOBIN (test code=HGB) 12.1 gram/dL 11.5-15.5 HEMATOCRIT (test code=HCT) 37.5 % 36.0-46.0 MEAN CELL VOLUME (test code=MCV) 84.1 fL 80-98 MEAN CELL HGB (test code=MCH) 27.1 picogram 27.0-33.0 MEAN CELL HGB CONCETRATION (test code=MCHC) 32.3 gram/dL 33.0-36.0 RED CELL DISTRIBUTION WIDTH (test code=RDW) 13.6 % 11.6-16.2 RED CELL DISTRIBUTION WIDTH SD (test code=RDW-SD) 42.0 fL 37.0-51.0 PLATELET COUNT (test code=PLT) 185 K/mm3 150-450 RESULT VERIFIED BY REPEAT ANALYSIS MEAN PLATELET VOLUME (test code=MPV) 9.3 fL 6.7-11.0 NEUTROPHIL % (test code=NT%) 66.4 % 39.0-69.0 IMMATURE GRANULOCYTE % (test code=IG%) 0.5 % 0.0-5.0 LYMPHOCYTE % (test code=LY%) 25.7 % 25.0-55.0 MONOCYTE % (test code=MO%) 5.6 % 0.0-10.0 EOSINOPHIL % (test code=EO%) 1.7 % 0.0-5.0 BASOPHIL % (test code=BA%) 0.1 % 0.0-1.0 NUCLEATED RBC % (test code=NRBC%) 0.0 % 0-0 NEUTROPHIL # (test code=NT#) 5.34 K/mm3 1.8-7.7 IMMATURE GRANULOCYTE # (test code=IG#) 0.04 x10 3/uL 0-0.03 LYMPHOCYTE # (test code=LY#) 2.07 K/mm3 1.0-5.0 MONOCYTE # (test code=MO#) 0.45 K/mm3 0-0.8 EOSINOPHIL # (test code=EO#) 0.14 K/mm3 0.0-0.5 BASOPHIL # (test code=BA#) 0.01 K/mm3 0.0-0.2 NUCLEATED RBC # (test code=NRBC#) 0.00 K/mm3 0.0-0.1 MANUAL DIFF REQUIRED (test code=MDIFF) NO, ONLY SCAN NEEDED DIFFERENTIAL [id number] 11:15:00* Test Item Value Reference Range Comments STAIN ACCEPTABILITY (test code=STN ACCEPTABLE) MORPHOLOGY COMMENT (test code=MOC) PLATELET ESTIMATE (test code=PLTEST) PLATELET MORPHOLOGY (test code=PLTMORPH) CBC W/AUTO [id number] 11:15:00* Test Item Value Reference Range Comments WHITE BLOOD CELL (test code=WBC) 8.1 K/mm3 4.5-12.5 RED BLOOD CELL (test code=RBC) 4.46 mill/mm3 3.7-5.2 HEMOGLOBIN (test code=HGB) 12.1 gram/dL 11.5-15.5 HEMATOCRIT (test code=HCT) 37.5 % 36.0-46.0 MEAN CELL VOLUME (test code=MCV) 84.1 fL 80-98 MEAN CELL HGB (test code=MCH) 27.1 picogram 27.0-33.0 MEAN CELL HGB CONCETRATION (test code=MCHC) 32.3 gram/dL 33.0-36.0 RED CELL DISTRIBUTION WIDTH (test code=RDW) 13.6 % 11.6-16.2 RED CELL DISTRIBUTION WIDTH SD (test code=RDW-SD) 42.0 fL 37.0-51.0 PLATELET COUNT (test code=PLT) 185 K/mm3 150-450 RESULT VERIFIED BY REPEAT ANALYSIS MEAN PLATELET VOLUME (test code=MPV) 9.3 fL 6.7-11.0 NEUTROPHIL % (test code=NT%) 66.4 % 39.0-69.0 IMMATURE GRANULOCYTE % (test code=IG%) 0.5 % 0.0-5.0 LYMPHOCYTE % (test code=LY%) 25.7 % 25.0-55.0 MONOCYTE % (test code=MO%) 5.6 % 0.0-10.0 EOSINOPHIL % (test code=EO%) 1.7 % 0.0-5.0 BASOPHIL % (test code=BA%) 0.1 % 0.0-1.0 NUCLEATED RBC % (test code=NRBC%) 0.0 % 0-0 NEUTROPHIL # (test code=NT#) 5.34 K/mm3 1.8-7.7 IMMATURE GRANULOCYTE # (test code=IG#) 0.04 x10 3/uL 0-0.03 LYMPHOCYTE # (test code=LY#) 2.07 K/mm3 1.0-5.0 MONOCYTE # (test code=MO#) 0.45 K/mm3 0-0.8 EOSINOPHIL # (test code=EO#) 0.14 K/mm3 0.0-0.5 BASOPHIL # (test code=BA#) 0.01 K/mm3 0.0-0.2 NUCLEATED RBC # (test code=NRBC#) 0.00 K/mm3 0.0-0.1 MANUAL DIFF REQUIRED (test code=MDIFF) NO, ONLY SCAN NEEDED DIFFERENTIAL [id number] 11:15:00* Test Item Value Reference Range Comments STAIN ACCEPTABILITY (test code=STN ACCEPTABLE) CABOT RINGS (test code=CAB) MORPHOLOGY COMMENT (test code=MOC) PLATELET ESTIMATE (test code=PLTEST) PLATELET MORPHOLOGY (test code=PLTMORPH) BASIC METABOLIC [id number] 10:58:00* Test Item Value Reference Range Comments SODIUM (test code=NA) 137 mmol/L 136-145 POTASSIUM (test code=K) 4.2 mmol/L 3.5-5.1 CHLORIDE (test code=CL) 109.0 mmol/L 98-107 CARBON DIOXIDE (test code=CO2) 23.0 mmol/L 21-32 ANION GAP (test code=GAP) 9.2 10-20 GLUCOSE (test code=GLU) 171 mg/dL 74-106 BLOOD UREA NITROGEN (test code=BUN) 19 mg/dL 7-18 GLOMERULAR FILTRATION RATE (test code=GFR) > 60 mL/min >=60 Estimated GFR by using Modified MDRD formula.Chronic kidney disease is defined as either kidney damageor GFR <60 mL/min/1.73 m2 for >3 months. CREATININE (test code=CREAT) 0.60 mg/dL 0.55-1.02 Note change in reference range due to change in reagent. BUN/CREATININE RATIO (test code=BUN/CREA) 31.7 10-20 CALCIUM (test code=CA) 8.5 mg/dL 8.5-10.1 [id number] 07:58:00* Test Item Value Reference Range Comments GLUBED (test code=GLUBED) 98 mg/dL 74-106 Performed by certified tailing machine operator at [facility] [id number] 20:46:00* Test Item Value Reference Range Comments GLUBED (test code=GLUBED) 236 mg/dL 74-106 Performed by certified tailing machine operator at [facility] [id number] 16:49:00* Test Item Value Reference Range Comments GLUBED (test code=GLUBED) 177 mg/dL 74-106 Performed by certified tailing machine operator at [facility] C REACTIVE [id number] 09:30:00* Test Item Value Reference Range Comments C REACTIVE PROTEIN (test code=CRP) 1.42 mg/dL 0-0.3 BASIC METABOLIC [id number] 09:30:00* Test Item Value Reference Range Comments SODIUM (test code=NA) 135 mmol/L 136-145 POTASSIUM (test code=K) 3.6 mmol/L 3.5-5.1 CHLORIDE (test code=CL) 100.0 mmol/L 98-107 CARBON DIOXIDE (test code=CO2) 29.0 mmol/L 21-32 ANION GAP (test code=GAP) 9.6 10-20 GLUCOSE (test code=GLU) 204 mg/dL 74-106 BLOOD UREA NITROGEN (test code=BUN) 20 mg/dL 7-18 GLOMERULAR FILTRATION RATE (test code=GFR) > 60 mL/min >=60 Estimated GFR by using Modified MDRD formula.Chronic kidney disease is defined as either kidney damageor GFR <60 mL/min/1.73 m2 for >3 months. CREATININE (test code=CREAT) 0.70 mg/dL 0.55-1.02 Note change in reference range due to change in reagent. BUN/CREATININE RATIO (test code=BUN/CREA) 28.6 10-20 CALCIUM (test code=CA) 9.3 mg/dL 8.5-10.1 HEPATIC FUNCTION [id number] 09:30:00* Test Item Value Reference Range Comments TOTAL PROTEIN (test code=PROT) 8.1 gram/dL 6.4-8.2 ALBUMIN (test code=ALB) 3.8 g/dL 3.4-5.0 GLOBULIN (test code=GLOB) 4.3 gram/dL 2.7-4.2 ALBUMIN/GLOBULIN RATIO (test code=A/G) 0.9 0.75-1.50 BILIRUBIN TOTAL (test code=BILT) 0.40 mg/dL 0.0-1.0 BILIRUBIN DIRECT (test code=BILD) 0.08 mg/dL 0.0-0.20 SGOT/AST (test code=AST) 16 IUnit/L 15-37 SGPT/ALT (test code=ALT) 29 IUnit/L 12-78 ALKALINE PHOSPHATASE TOTAL (test code=ALKP) 128 IUnit/L 45-117 Note change in reference range due to change in reagent. BASIC METABOLIC [id number] 09:20:00* Test Item Value Reference Range Comments SODIUM (test code=NA) 135 mmol/L 136-145 POTASSIUM (test code=K) 3.6 mmol/L 3.5-5.1 CHLORIDE (test code=CL) 100.0 mmol/L 98-107 CARBON DIOXIDE (test code=CO2) mmol/L 21-32 ANION GAP (test code=GAP) 10-20 GLUCOSE (test code=GLU) mg/dL 74-106 BLOOD UREA NITROGEN (test code=BUN) mg/dL 7-18 GLOMERULAR FILTRATION RATE (test code=GFR) mL/min >=60 CREATININE (test code=CREAT) mg/dL 0.55-1.02 BUN/CREATININE RATIO (test code=BUN/CREA) 10-20 CALCIUM (test code=CA) mg/dL 8.5-10.1 HEPATIC FUNCTION [id number] 09:20:00* Test Item Value Reference Range Comments TOTAL PROTEIN (test code=PROT) gram/dL 6.4-8.2 ALBUMIN (test code=ALB) g/dL 3.4-5.0 GLOBULIN (test code=GLOB) gram/dL 2.7-4.2 ALBUMIN/GLOBULIN RATIO (test code=A/G) 0.75-1.50 BILIRUBIN TOTAL (test code=BILT) mg/dL 0.0-1.0 BILIRUBIN DIRECT (test code=BILD) mg/dL 0.0-0.20 SGOT/AST (test code=AST) IUnit/L 15-37 SGPT/ALT (test code=ALT) IUnit/L 12-78 ALKALINE PHOSPHATASE TOTAL (test code=ALKP) IUnit/L 45-117 CBC W/O [id number] 09:19:00* Test Item Value Reference Range Comments WHITE BLOOD CELL (test code=WBC) 15.1 K/mm3 4.5-12.5 RED BLOOD CELL (test code=RBC) 4.85 mill/mm3 3.7-5.2 HEMOGLOBIN (test code=HGB) 13.0 gram/dL 11.5-15.5 HEMATOCRIT (test code=HCT) 40.7 % 36.0-46.0 MEAN CELL VOLUME (test code=MCV) 83.9 fL 80-98 MEAN CELL HGB (test code=MCH) 26.8 picogram 27.0-33.0 MEAN CELL HGB CONCETRATION (test code=MCHC) 31.9 gram/dL 33.0-36.0 RED CELL DISTRIBUTION WIDTH (test code=RDW) 13.7 % 11.6-16.2 PLATELET COUNT (test code=PLT) 244 K/mm3 150-450 MEAN PLATELET VOLUME (test code=MPV) 9.2 fL 6.7-11.0 TROPONIN I [id number] 09:13:00* Test Item Value Reference Range Comments TROPONIN I RAPID (test code=TROPIRAP) 0.00 ng/mL <0.08 Please Note New Reference Range 0.00-0.079 ng/mL - Negative>or=0.08 ng/mL - Positive The use of serial sampling and testing protocol is arecommended practice.An elevated troponin level alone is often not sufficient fordiagnosis of myocardial infarction. Troponin results obtained by different assays may vary.Evaluation of the extent of myocardial damage based onincrease of troponin would be valid only if similarmethodology is used. - XR FOOT 3 + V [id number] 07:42:00 FAX: NELSON GARCIA MD [place]: B St: REG Name: FRANCINE YOUSSEF [facility] : [birth year] Age/S: 58/F [address] Unit #: [id number] Loc: [place] [address] Phys: NELSON GARCIA MD Acct: [id number] Dis Date: Status: REG ER PHONE #: [phone] Exam Date: 08/26/2018729 FAX #: [phone] Reason: foot ulcer (1st) EXAMS: CPT CODE: [id number] XR FOOT 3 + [place] [id number] CLINICAL HISTORY: foot ulcer (1st) TECHNIQUE: AP, oblique, and lateral views of the right foot COMPARISON: 08/08/18 FINDINGS: No acute fracture or dislocation. Bony trabecular pattern is unremarkable. No cortical destruction or periosteal reaction. Achilles and plantar calcaneal osteoph ytes. Mild degenerative changes of the talonavicular, 2nd tarsometatarsal, 1st metatarsophalangeal, and 1st interphalangeal joints. 1st toe soft tis whit swelling. IMPRESSION: No radiograp hic evidence of acute osteomyelitis. Consider 3 phase bone scan or MRI. at 0742 Reported and signed by: Abbey Lezama D.O. CC: NELSON GARCIA MD Technologist: MIRTHA HOLDEN RT(R) Trnscrd Date/Time/By: 08/26/2018 ( 0742) : By: [email or web address] Orig Print D/T: S: 08/26/2018 (0720) PAGE 1 Signed Report [id number] 07:27:00* Test Item Value Reference Range Comments PREALBUMIN (test code=PREALB) 15.0 mg/dL 10-36 Performed At: [facility] [address] [id number] Reji Sanford MD Ph:[phone] - XR FOOT 3 + V [id number] 16:15:00 FAX: Joseph West MD [phone] [place]: O St: REG FAX: Y Stefan Peters DPM [phone] Name: FRANCINE ENCARNACION [facility] : 1960 Age/S: 58/F [address] [facility] Unit #: [id number] Loc: [place] [address] Phys: Stefan Peters DPM Acct: [id number] Dis Date: Status: REG RCR PHONE #: [phone] Exam Date: 08/08/2018 1525 FAX #: [phone] Reason: S91.301A EXAMS: CPT CODE: [id number] XR FOOT 3 + V RT [id number] REASON FOR EXAM: S91.301A EXAM ORDER DATE: 08/08/2018 3:06 PM Ordering Clemente: Stefan Peters DPM PROCEDURE: - XR FOOT 3 + V RT FINDINGS: 3 views of the right foot were obtained. The osseous structures are unremarkable in size and shape. There is partial union of the right 5th PIP. Small s purs seen within the insertion of the plantar fascia and the Achilles tend on. The joint spaces are maintained. No evidence of fracture. The phalang es are intact. 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 CC: Joseph West MD; Stefan Peters DPM Tech nologist: aMribel Addison RT(R) Trnscrd Date/Ti me/By: 08/08/2018 (4765) : By: TommieL Orig Print D/T: S: 08/08/2018 (4600) PAGE 1 Signed Report C REACTIVE [id number] 16:04:00* Test Item Value Reference Range Comments C REACTIVE PROTEIN (test code=CRP) 0.90 mg/dL 0-0.3 COMPREHENSIVE METABOLIC [id number] 16:04:00* Test Item Value Reference Range Comments SODIUM (test code=NA) 133 mmol/L 136-145 POTASSIUM (test code=K) 3.7 mmol/L 3.5-5.1 CHLORIDE (test code=CL) 98.0 mmol/L 98-107 CARBON DIOXIDE (test code=CO2) 28.0 mmol/L 21-32 ANION GAP (test code=GAP) 10.7 10-20 GLUCOSE (test code=GLU) 295 mg/dL 74-106 BLOOD UREA NITROGEN (test code=BUN) 14 mg/dL 7-18 GLOMERULAR FILTRATION RATE (test code=GFR) > 60 mL/min >=60 Estimated GFR by using Modified MDRD formula.Chronic kidney disease is defined as either kidney damageor GFR <60 mL/min/1.73 m2 for >3 months. CREATININE (test code=CREAT) 0.60 mg/dL 0.55-1.02 Note change in reference range due to change in reagent. BUN/CREATININE RATIO (test code=BUN/CREA) 23.3 10-20 TOTAL PROTEIN (test code=PROT) 7.1 gram/dL 6.4-8.2 ALBUMIN (test code=ALB) 3.2 g/dL 3.4-5.0 GLOBULIN (test code=GLOB) 3.9 gram/dL 2.7-4.2 ALBUMIN/GLOBULIN RATIO (test code=A/G) 0.8 0.75-1.50 CALCIUM (test code=CA) 8.7 mg/dL 8.5-10.1 BILIRUBIN TOTAL (test code=BILT) 0.40 mg/dL 0.0-1.0 SGOT/AST (test code=AST) 10 IUnit/L 15-37 SGPT/ALT (test code=ALT) 18 IUnit/L 12-78 ALKALINE PHOSPHATASE TOTAL (test code=ALKP) 123 IUnit/L 45-117 Note change in reference range due to change in reagent. [id number] 16:03:00* Test Item Value Reference Range Comments GLYCOSYLATED HEMOGLOBIN (HA1C) (test code=GLYHGB) 11.8 % HbA1 4.8-6.0 ESTIMATED AVERAGE GLUCOSE (test code=EAG) 292 MG/DL COMPREHENSIVE METABOLIC [id number] 15:53:00* Test Item Value Reference Range Comments SODIUM (test code=NA) 133 mmol/L 136-145 POTASSIUM (test code=K) 3.7 mmol/L 3.5-5.1 CHLORIDE (test code=CL) 98.0 mmol/L 98-107 CARBON DIOXIDE (test code=CO2) mmol/L 21-32 ANION GAP (test code=GAP) 10-20 GLUCOSE (test code=GLU) mg/dL 74-106 BLOOD UREA NITROGEN (test code=BUN) mg/dL 7-18 GLOMERULAR FILTRATION RATE (test code=GFR) mL/min >=60 CREATININE (test code=CREAT) mg/dL 0.55-1.02 BUN/CREATININE RATIO (test code=BUN/CREA) 10-20 TOTAL PROTEIN (test code=PROT) gram/dL 6.4-8.2 ALBUMIN (test code=ALB) g/dL 3.4-5.0 GLOBULIN (test code=GLOB) gram/dL 2.7-4.2 ALBUMIN/GLOBULIN RATIO (test code=A/G) 0.75-1.50 CALCIUM (test code=CA) mg/dL 8.5-10.1 BILIRUBIN TOTAL (test code=BILT) mg/dL 0.0-1.0 SGOT/AST (test code=AST) IUnit/L 15-37 SGPT/ALT (test code=ALT) IUnit/L 12-78 ALKALINE PHOSPHATASE TOTAL (test code=ALKP) IUnit/L 45-117 CBC W/AUTO [id number] 15:37:00* Test Item Value Reference Range Comments WHITE BLOOD CELL (test code=WBC) 8.9 K/mm3 4.5-12.5 RED BLOOD CELL (test code=RBC) 4.84 mill/mm3 3.7-5.2 HEMOGLOBIN (test code=HGB) 13.1 gram/dL 11.5-15.5 HEMATOCRIT (test code=HCT) 40.2 % 36.0-46.0 MEAN CELL VOLUME (test code=MCV) 83.1 fL 80-98 MEAN CELL HGB (test code=MCH) 27.1 picogram 27.0-33.0 MEAN CELL HGB CONCETRATION (test code=MCHC) 32.6 gram/dL 33.0-36.0 RED CELL DISTRIBUTION WIDTH (test code=RDW) 14.0 % 11.6-16.2 RED CELL DISTRIBUTION WIDTH SD (test code=RDW-SD) 42.3 fL 37.0-51.0 PLATELET COUNT (test code=PLT) 278 K/mm3 150-450 MEAN PLATELET VOLUME (test code=MPV) 9.2 fL 6.7-11.0 NEUTROPHIL % (test code=NT%) 57.7 % 39.0-69.0 IMMATURE GRANULOCYTE % (test code=IG%) 0.5 % 0.0-5.0 LYMPHOCYTE % (test code=LY%) 34.9 % 25.0-55.0 MONOCYTE % (test code=MO%) 5.5 % 0.0-10.0 EOSINOPHIL % (test code=EO%) 1.2 % 0.0-5.0 BASOPHIL % (test code=BA%) 0.2 % 0.0-1.0 NUCLEATED RBC % (test code=NRBC%) 0.0 % 0-0 NEUTROPHIL # (test code=NT#) 5.11 K/mm3 1.8-7.7 IMMATURE GRANULOCYTE # (test code=IG#) 0.04 x10 3/uL 0-0.03 LYMPHOCYTE # (test code=LY#) 3.09 K/mm3 1.0-5.0 MONOCYTE # (test code=MO#) 0.49 K/mm3 0-0.8 EOSINOPHIL # (test code=EO#) 0.11 K/mm3 0.0-0.5 BASOPHIL # (test code=BA#) 0.02 K/mm3 0.0-0.2 NUCLEATED RBC # (test code=NRBC#) 0.00 K/mm3 0.0-0.1 MANUAL DIFF REQUIRED (test code=MDIFF) NO CBC W/AUTO [id number] 15:36:00* Test Item Value Reference Range Comments WHITE BLOOD CELL (test code=WBC) K/mm3 4.5-12.5 RED BLOOD CELL (test code=RBC) mill/mm3 3.7-5.2 HEMOGLOBIN (test code=HGB) 13.1 gram/dL 11.5-15.5 HEMATOCRIT (test code=HCT) 40.2 % 36.0-46.0 MEAN CELL VOLUME (test code=MCV) fL 80-98 MEAN CELL HGB (test code=MCH) picogram 27.0-33.0 MEAN CELL HGB CONCETRATION (test code=MCHC) gram/dL 33.0-36.0 RED CELL DISTRIBUTION WIDTH (test code=RDW) % 11.6-16.2 RED CELL DISTRIBUTION WIDTH SD (test code=RDW-SD) fL 37.0-51.0 PLATELET COUNT (test code=PLT) K/mm3 150-450 MEAN PLATELET VOLUME (test code=MPV) fL 6.7-11.0 NEUTROPHIL % (test code=NT%) % 39.0-69.0 IMMATURE GRANULOCYTE % (test code=IG%) % 0.0-5.0 LYMPHOCYTE % (test code=LY%) % 25.0-55.0 MONOCYTE % (test code=MO%) % 0.0-10.0 EOSINOPHIL % (test code=EO%) % 0.0-5.0 BASOPHIL % (test code=BA%) % 0.0-1.0 NEUTROPHIL # (test code=NT#) K/mm3 1.8-7.7 LYMPHOCYTE # (test code=LY#) K/mm3 1.0-5.0 MONOCYTE # (test code=MO#) K/mm3 0-0.8 EOSINOPHIL # (test code=EO#) K/mm3 0.0-0.5 BASOPHIL # (test code=BA#) K/mm3 0.0-0.2 CBC W/MANUAL [id number] 18:54:00* Test Item Value Reference Range Comments WHITE BLOOD CELL (test code=WBC) 8.3 K/mm3 4.5-12.5 RED BLOOD CELL (test code=RBC) 5.13 mill/mm3 3.7-5.2 HEMOGLOBIN (test code=HGB) 13.4 gram/dL 11.5-15.5 HEMATOCRIT (test code=HCT) 41.9 % 36.0-46.0 MEAN CELL VOLUME (test code=MCV) 81.7 fL 80-98 MEAN CELL HGB (test code=MCH) 26.1 picogram 27.0-33.0 MEAN CELL HGB CONCETRATION (test code=MCHC) 32.0 gram/dL 33.0-36.0 RED CELL DISTRIBUTION WIDTH (test code=RDW) 14.5 % 11.6-16.2 RED CELL DISTRIBUTION WIDTH SD (test code=RDW-SD) 42.8 fL 37.0-51.0 PLATELET COUNT (test code=PLT) 282 K/mm3 150-450 MEAN PLATELET VOLUME (test code=MPV) 9.1 fL 6.7-11.0 IMMATURE GRANULOCYTE % (test code=IG%) 0.6 % 0.0-5.0 NUCLEATED RBC % (test code=NRBC%) 0.0 % 0-0 NEUTROPHIL # (test code=NT#) 4.31 K/mm3 1.8-7.7 IMMATURE GRANULOCYTE # (test code=IG#) 0.05 x10 3/uL 0-0.03 LYMPHOCYTE # (test code=LY#) 3.19 K/mm3 1.0-5.0 MONOCYTE # (test code=MO#) 0.62 K/mm3 0-0.8 EOSINOPHIL # (test code=EO#) 0.09 K/mm3 0.0-0.5 BASOPHIL # (test code=BA#) 0.03 K/mm3 0.0-0.2 NUCLEATED RBC # (test code=NRBC#) 0.00 K/mm3 0.0-0.1 MANUAL DIFF REQUIRED (test code=MDIFF) YES STAIN ACCEPTABILITY (test code=STN ACCEPTABLE) STAIN ACCEPTABLE TOTAL CELLS COUNTED (test code=TCC) 100 #CELLS SEGMENTED NEUTROPHILS (test code=SEG) 43 % 39-69 BAND NEUTROPHIL (test code=BAND) 5 % 0-10 LYMPHOCYTE (test code=LYMPH) 39 % 25-55 REACTIVE LYMPH (test code=RELYMPH) 1 % MONOCYTE (test code=MON) 8 % 0-10 EOSINOPHIL (test code=EOS) 3 % 0.0-5.0 BASOPHIL (test code=BASO) 1 % 0-1.0 MORPHOLOGY COMMENT (test code=MOC) NORMAL PLATELET ESTIMATE (test code=PLTEST) ADEQUATE PLATELET MORPHOLOGY (test code=PLTMORPH) NORMAL BASIC METABOLIC [id number] 17:50:00* Test Item Value Reference Range Comments SODIUM (test code=NA) 135 mmol/L 136-145 POTASSIUM (test code=K) 4.2 mmol/L 3.5-5.1 CHLORIDE (test code=CL) 104.0 mmol/L 98-107 CARBON DIOXIDE (test code=CO2) 24.0 mmol/L 21-32 ANION GAP (test code=GAP) 11.2 10-20 GLUCOSE (test code=GLU) 334 mg/dL 74-106 BLOOD UREA NITROGEN (test code=BUN) 20 mg/dL 7-18 GLOMERULAR FILTRATION RATE (test code=GFR) > 60 mL/min >=60 Estimated GFR by using Modified MDRD formula.Chronic kidney disease is defined as either kidney damageor GFR <60 mL/min/1.73 m2 for >3 months. CREATININE (test code=CREAT) 0.70 mg/dL 0.55-1.02 Note change in reference range due to change in reagent. BUN/CREATININE RATIO (test code=BUN/CREA) 29.9 10-20 CALCIUM (test code=CA) 8.6 mg/dL 8.5-10.1 HEPATIC FUNCTION [id number] 17:50:00* Test Item Value Reference Range Comments TOTAL PROTEIN (test code=PROT) 6.8 gram/dL 6.4-8.2 ALBUMIN (test code=ALB) 3.0 g/dL 3.4-5.0 GLOBULIN (test code=GLOB) 3.8 gram/dL 2.7-4.2 ALBUMIN/GLOBULIN RATIO (test code=A/G) 0.8 0.75-1.50 BILIRUBIN TOTAL (test code=BILT) 0.20 mg/dL 0.0-1.0 BILIRUBIN DIRECT (test code=BILD) 0.07 mg/dL 0.0-0.20 SGOT/AST (test code=AST) 6 IUnit/L 15-37 SGPT/ALT (test code=ALT) 17 IUnit/L 12-78 ALKALINE PHOSPHATASE TOTAL (test code=ALKP) 143 IUnit/L 45-117 Note change in reference range due to change in reagent. [id number] 17:50:00* Test Item Value Reference Range Comments LIPASE (test code=LIP) 94 U/L 73.0-393.0 BASIC METABOLIC [id number] 17:36:00* Test Item Value Reference Range Comments SODIUM (test code=NA) 135 mmol/L 136-145 POTASSIUM (test code=K) 4.2 mmol/L 3.5-5.1 CHLORIDE (test code=CL) 104.0 mmol/L 98-107 CARBON DIOXIDE (test code=CO2) mmol/L 21-32 ANION GAP (test code=GAP) 10-20 GLUCOSE (test code=GLU) mg/dL 74-106 BLOOD UREA NITROGEN (test code=BUN) mg/dL 7-18 GLOMERULAR FILTRATION RATE (test code=GFR) mL/min >=60 CREATININE (test code=CREAT) mg/dL 0.55-1.02 BUN/CREATININE RATIO (test code=BUN/CREA) 10-20 CALCIUM (test code=CA) mg/dL 8.5-10.1 HEPATIC FUNCTION [id number] 17:36:00* Test Item Value Reference Range Comments TOTAL PROTEIN (test code=PROT) gram/dL 6.4-8.2 ALBUMIN (test code=ALB) g/dL 3.4-5.0 GLOBULIN (test code=GLOB) gram/dL 2.7-4.2 ALBUMIN/GLOBULIN RATIO (test code=A/G) 0.75-1.50 BILIRUBIN TOTAL (test code=BILT) mg/dL 0.0-1.0 BILIRUBIN DIRECT (test code=BILD) mg/dL 0.0-0.20 SGOT/AST (test code=AST) IUnit/L 15-37 SGPT/ALT (test code=ALT) IUnit/L 12-78 ALKALINE PHOSPHATASE TOTAL (test code=ALKP) IUnit/L 45-117 [id number] 17:36:00* Test Item Value Reference Range Comments LIPASE (test code=LIP) U/L 73.0-393.0 CBC W/MANUAL [id number] 17:29:00* Test Item Value Reference Range Comments WHITE BLOOD CELL (test code=WBC) 8.3 K/mm3 4.5-12.5 RED BLOOD CELL (test code=RBC) 5.13 mill/mm3 3.7-5.2 HEMOGLOBIN (test code=HGB) 13.4 gram/dL 11.5-15.5 HEMATOCRIT (test code=HCT) 41.9 % 36.0-46.0 MEAN CELL VOLUME (test code=MCV) 81.7 fL 80-98 MEAN CELL HGB (test code=MCH) 26.1 picogram 27.0-33.0 MEAN CELL HGB CONCETRATION (test code=MCHC) 32.0 gram/dL 33.0-36.0 RED CELL DISTRIBUTION WIDTH (test code=RDW) 14.5 % 11.6-16.2 RED CELL DISTRIBUTION WIDTH SD (test code=RDW-SD) 42.8 fL 37.0-51.0 PLATELET COUNT (test code=PLT) 282 K/mm3 150-450 MEAN PLATELET VOLUME (test code=MPV) 9.1 fL 6.7-11.0 IMMATURE GRANULOCYTE % (test code=IG%) 0.6 % 0.0-5.0 NUCLEATED RBC % (test code=NRBC%) 0.0 % 0-0 NEUTROPHIL # (test code=NT#) 4.31 K/mm3 1.8-7.7 IMMATURE GRANULOCYTE # (test code=IG#) 0.05 x10 3/uL 0-0.03 LYMPHOCYTE # (test code=LY#) 3.19 K/mm3 1.0-5.0 MONOCYTE # (test code=MO#) 0.62 K/mm3 0-0.8 EOSINOPHIL # (test code=EO#) 0.09 K/mm3 0.0-0.5 BASOPHIL # (test code=BA#) 0.03 K/mm3 0.0-0.2 NUCLEATED RBC # (test code=NRBC#) 0.00 K/mm3 0.0-0.1 MANUAL DIFF REQUIRED (test code=MDIFF) YES STAIN ACCEPTABILITY (test code=STN ACCEPTABLE) TOTAL CELLS COUNTED (test code=TCC) #CELLS SEGMENTED NEUTROPHILS (test code=SEG) % 39-69 LYMPHOCYTE (test code=LYMPH) % 25-55 MONOCYTE (test code=MON) % 0-10 EOSINOPHIL (test code=EOS) % 0.0-5.0 CABOT RINGS (test code=CAB) MORPHOLOGY COMMENT (test code=MOC) PLATELET ESTIMATE (test code=PLTEST) PLATELET MORPHOLOGY (test code=PLTMORPH) CBC W/MANUAL [id number] 17:29:00* Test Item Value Reference Range Comments WHITE BLOOD CELL (test code=WBC) 8.3 K/mm3 4.5-12.5 RED BLOOD CELL (test code=RBC) 5.13 mill/mm3 3.7-5.2 HEMOGLOBIN (test code=HGB) 13.4 gram/dL 11.5-15.5 HEMATOCRIT (test code=HCT) 41.9 % 36.0-46.0 MEAN CELL VOLUME (test code=MCV) 81.7 fL 80-98 MEAN CELL HGB (test code=MCH) 26.1 picogram 27.0-33.0 MEAN CELL HGB CONCETRATION (test code=MCHC) 32.0 gram/dL 33.0-36.0 RED CELL DISTRIBUTION WIDTH (test code=RDW) 14.5 % 11.6-16.2 RED CELL DISTRIBUTION WIDTH SD (test code=RDW-SD) 42.8 fL 37.0-51.0 PLATELET COUNT (test code=PLT) 282 K/mm3 150-450 MEAN PLATELET VOLUME (test code=MPV) 9.1 fL 6.7-11.0 IMMATURE GRANULOCYTE % (test code=IG%) 0.6 % 0.0-5.0 NUCLEATED RBC % (test code=NRBC%) 0.0 % 0-0 NEUTROPHIL # (test code=NT#) 4.31 K/mm3 1.8-7.7 IMMATURE GRANULOCYTE # (test code=IG#) 0.05 x10 3/uL 0-0.03 LYMPHOCYTE # (test code=LY#) 3.19 K/mm3 1.0-5.0 MONOCYTE # (test code=MO#) 0.62 K/mm3 0-0.8 EOSINOPHIL # (test code=EO#) 0.09 K/mm3 0.0-0.5 BASOPHIL # (test code=BA#) 0.03 K/mm3 0.0-0.2 NUCLEATED RBC # (test code=NRBC#) 0.00 K/mm3 0.0-0.1 MANUAL DIFF REQUIRED (test code=MDIFF) YES STAIN ACCEPTABILITY (test code=STN ACCEPTABLE) TOTAL CELLS COUNTED (test code=TCC) #CELLS SEGMENTED NEUTROPHILS (test code=SEG) % 39-69 LYMPHOCYTE (test code=LYMPH) % 25-55 MONOCYTE (test code=MON) % 0-10 EOSINOPHIL (test code=EOS) % 0.0-5.0 CABOT RINGS (test code=CAB) MORPHOLOGY COMMENT (test code=MOC) PLATELET ESTIMATE (test code=PLTEST) PLATELET MORPHOLOGY (test code=PLTMORPH) CBC W/MANUAL [id number] 17:29:00* Test Item Value Reference Range Comments WHITE BLOOD CELL (test code=WBC) 8.3 K/mm3 4.5-12.5 RED BLOOD CELL (test code=RBC) 5.13 mill/mm3 3.7-5.2 HEMOGLOBIN (test code=HGB) 13.4 gram/dL 11.5-15.5 HEMATOCRIT (test code=HCT) 41.9 % 36.0-46.0 MEAN CELL VOLUME (test code=MCV) 81.7 fL 80-98 MEAN CELL HGB (test code=MCH) 26.1 picogram 27.0-33.0 MEAN CELL HGB CONCETRATION (test code=MCHC) 32.0 gram/dL 33.0-36.0 RED CELL DISTRIBUTION WIDTH (test code=RDW) 14.5 % 11.6-16.2 RED CELL DISTRIBUTION WIDTH SD (test code=RDW-SD) 42.8 fL 37.0-51.0 PLATELET COUNT (test code=PLT) 282 K/mm3 150-450 MEAN PLATELET VOLUME (test code=MPV) 9.1 fL 6.7-11.0 IMMATURE GRANULOCYTE % (test code=IG%) 0.6 % 0.0-5.0 NUCLEATED RBC % (test code=NRBC%) 0.0 % 0-0 NEUTROPHIL # (test code=NT#) 4.31 K/mm3 1.8-7.7 IMMATURE GRANULOCYTE # (test code=IG#) 0.05 x10 3/uL 0-0.03 LYMPHOCYTE # (test code=LY#) 3.19 K/mm3 1.0-5.0 MONOCYTE # (test code=MO#) 0.62 K/mm3 0-0.8 EOSINOPHIL # (test code=EO#) 0.09 K/mm3 0.0-0.5 BASOPHIL # (test code=BA#) 0.03 K/mm3 0.0-0.2 NUCLEATED RBC # (test code=NRBC#) 0.00 K/mm3 0.0-0.1 MANUAL DIFF REQUIRED (test code=MDIFF) YES STAIN ACCEPTABILITY (test code=STN ACCEPTABLE) TOTAL CELLS COUNTED (test code=TCC) #CELLS SEGMENTED NEUTROPHILS (test code=SEG) % 39-69 LYMPHOCYTE (test code=LYMPH) % 25-55 MONOCYTE (test code=MON) % 0-10 EOSINOPHIL (test code=EOS) % 0.0-5.0 MORPHOLOGY COMMENT (test code=MOC) PLATELET ESTIMATE (test code=PLTEST) PLATELET MORPHOLOGY (test code=PLTMORPH) CBC W/MANUAL [id number] 17:29:00* Test Item Value Reference Range Comments WHITE BLOOD CELL (test code=WBC) 8.3 K/mm3 4.5-12.5 RED BLOOD CELL (test code=RBC) 5.13 mill/mm3 3.7-5.2 HEMOGLOBIN (test code=HGB) 13.4 gram/dL 11.5-15.5 HEMATOCRIT (test code=HCT) 41.9 % 36.0-46.0 MEAN CELL VOLUME (test code=MCV) 81.7 fL 80-98 MEAN CELL HGB (test code=MCH) 26.1 picogram 27.0-33.0 MEAN CELL HGB CONCETRATION (test code=MCHC) 32.0 gram/dL 33.0-36.0 RED CELL DISTRIBUTION WIDTH (test code=RDW) 14.5 % 11.6-16.2 RED CELL DISTRIBUTION WIDTH SD (test code=RDW-SD) 42.8 fL 37.0-51.0 PLATELET COUNT (test code=PLT) 282 K/mm3 150-450 MEAN PLATELET VOLUME (test code=MPV) 9.1 fL 6.7-11.0 IMMATURE GRANULOCYTE % (test code=IG%) 0.6 % 0.0-5.0 NUCLEATED RBC % (test code=NRBC%) 0.0 % 0-0 NEUTROPHIL # (test code=NT#) 4.31 K/mm3 1.8-7.7 IMMATURE GRANULOCYTE # (test code=IG#) 0.05 x10 3/uL 0-0.03 LYMPHOCYTE # (test code=LY#) 3.19 K/mm3 1.0-5.0 MONOCYTE # (test code=MO#) 0.62 K/mm3 0-0.8 EOSINOPHIL # (test code=EO#) 0.09 K/mm3 0.0-0.5 BASOPHIL # (test code=BA#) 0.03 K/mm3 0.0-0.2 NUCLEATED RBC # (test code=NRBC#) 0.00 K/mm3 0.0-0.1 MANUAL DIFF REQUIRED (test code=MDIFF) YES STAIN ACCEPTABILITY (test code=STN ACCEPTABLE) TOTAL CELLS COUNTED (test code=TCC) #CELLS SEGMENTED NEUTROPHILS (test code=SEG) % 39-69 LYMPHOCYTE (test code=LYMPH) % 25-55 MONOCYTE (test code=MON) % 0-10 MORPHOLOGY COMMENT (test code=MOC) PLATELET ESTIMATE (test code=PLTEST) PLATELET MORPHOLOGY (test code=PLTMORPH) CBC W/MANUAL [id number] 17:29:00* Test Item Value Reference Range Comments WHITE BLOOD CELL (test code=WBC) 8.3 K/mm3 4.5-12.5 RED BLOOD CELL (test code=RBC) 5.13 mill/mm3 3.7-5.2 HEMOGLOBIN (test code=HGB) 13.4 gram/dL 11.5-15.5 HEMATOCRIT (test code=HCT) 41.9 % 36.0-46.0 MEAN CELL VOLUME (test code=MCV) 81.7 fL 80-98 MEAN CELL HGB (test code=MCH) 26.1 picogram 27.0-33.0 MEAN CELL HGB CONCETRATION (test code=MCHC) 32.0 gram/dL 33.0-36.0 RED CELL DISTRIBUTION WIDTH (test code=RDW) 14.5 % 11.6-16.2 RED CELL DISTRIBUTION WIDTH SD (test code=RDW-SD) 42.8 fL 37.0-51.0 PLATELET COUNT (test code=PLT) 282 K/mm3 150-450 MEAN PLATELET VOLUME (test code=MPV) 9.1 fL 6.7-11.0 IMMATURE GRANULOCYTE % (test code=IG%) 0.6 % 0.0-5.0 NUCLEATED RBC % (test code=NRBC%) 0.0 % 0-0 NEUTROPHIL # (test code=NT#) 4.31 K/mm3 1.8-7.7 IMMATURE GRANULOCYTE # (test code=IG#) 0.05 x10 3/uL 0-0.03 LYMPHOCYTE # (test code=LY#) 3.19 K/mm3 1.0-5.0 MONOCYTE # (test code=MO#) 0.62 K/mm3 0-0.8 EOSINOPHIL # (test code=EO#) 0.09 K/mm3 0.0-0.5 BASOPHIL # (test code=BA#) 0.03 K/mm3 0.0-0.2 NUCLEATED RBC # (test code=NRBC#) 0.00 K/mm3 0.0-0.1 MANUAL DIFF REQUIRED (test code=MDIFF) YES STAIN ACCEPTABILITY (test code=STN ACCEPTABLE) TOTAL CELLS COUNTED (test code=TCC) #CELLS SEGMENTED NEUTROPHILS (test code=SEG) % 39-69 LYMPHOCYTE (test code=LYMPH) % 25-55 MONOCYTE (test code=MON) % 0-10 EOSINOPHIL (test code=EOS) % 0.0-5.0 CABOT RINGS (test code=CAB) MORPHOLOGY COMMENT (test code=MOC) PLATELET ESTIMATE (test code=PLTEST) PLATELET MORPHOLOGY (test code=PLTMORPH) CBC W/AUTO [id number] 17:22:00* Test Item Value Reference Range Comments WHITE BLOOD CELL (test code=WBC) K/mm3 4.5-12.5 RED BLOOD CELL (test code=RBC) mill/mm3 3.7-5.2 HEMOGLOBIN (test code=HGB) 13.4 gram/dL 11.5-15.5 HEMATOCRIT (test code=HCT) 41.9 % 36.0-46.0 MEAN CELL VOLUME (test code=MCV) fL 80-98 MEAN CELL HGB (test code=MCH) picogram 27.0-33.0 MEAN CELL HGB CONCETRATION (test code=MCHC) gram/dL 33.0-36.0 RED CELL DISTRIBUTION WIDTH (test code=RDW) % 11.6-16.2 RED CELL DISTRIBUTION WIDTH SD (test code=RDW-SD) fL 37.0-51.0 PLATELET COUNT (test code=PLT) K/mm3 150-450 MEAN PLATELET VOLUME (test code=MPV) fL 6.7-11.0 NEUTROPHIL % (test code=NT%) % 39.0-69.0 IMMATURE GRANULOCYTE % (test code=IG%) % 0.0-5.0 LYMPHOCYTE % (test code=LY%) % 25.0-55.0 MONOCYTE % (test code=MO%) % 0.0-10.0 EOSINOPHIL % (test code=EO%) % 0.0-5.0 BASOPHIL % (test code=BA%) % 0.0-1.0 NEUTROPHIL # (test code=NT#) K/mm3 1.8-7.7 LYMPHOCYTE # (test code=LY#) K/mm3 1.0-5.0 MONOCYTE # (test code=MO#) K/mm3 0-0.8 EOSINOPHIL # (test code=EO#) K/mm3 0.0-0.5 BASOPHIL # (test code=BA#) K/mm3 0.0-0.2 BASIC METABOLIC [id number] 21:26:00* Test Item Value Reference Range Comments SODIUM (test code=NA) 139 mmol/L 136-145 POTASSIUM (test code=K) 3.9 mmol/L 3.5-5.1 CHLORIDE (test code=CL) 105.0 mmol/L 98-107 CARBON DIOXIDE (test code=CO2) 28.0 mmol/L 21-32 ANION GAP (test code=GAP) 9.9 10-20 GLUCOSE (test code=GLU) 377 mg/dL 74-106 BLOOD UREA NITROGEN (test code=BUN) 11 mg/dL 7-18 GLOMERULAR FILTRATION RATE (test code=GFR) > 60 mL/min >=60 Estimated GFR by using Modified MDRD formula.Chronic kidney disease is defined as either kidney damageor GFR <60 mL/min/1.73 m2 for >3 months. CREATININE (test code=CREAT) 0.70 mg/dL 0.55-1.02 Note change in reference range due to change in reagent. BUN/CREATININE RATIO (test code=BUN/CREA) 15.7 10-20 CALCIUM (test code=CA) 8.5 mg/dL 8.5-10.1 HEPATIC FUNCTION [id number] 21:26:00* Test Item Value Reference Range Comments TOTAL PROTEIN (test code=PROT) 6.7 gram/dL 6.4-8.2 ALBUMIN (test code=ALB) 2.8 g/dL 3.4-5.0 GLOBULIN (test code=GLOB) 3.9 gram/dL 2.7-4.2 ALBUMIN/GLOBULIN RATIO (test code=A/G) 0.7 0.75-1.50 BILIRUBIN TOTAL (test code=BILT) 0.20 mg/dL 0.0-1.0 BILIRUBIN DIRECT (test code=BILD) < 0.05 mg/dL 0.0-0.20 SGOT/AST (test code=AST) 11 IUnit/L 15-37 SGPT/ALT (test code=ALT) 17 IUnit/L 12-78 ALKALINE PHOSPHATASE TOTAL (test code=ALKP) 169 IUnit/L 45-117 Note change in reference range due to change in reagent. [id number] 21:26:00* Test Item Value Reference Range Comments MAGNESIUM (test code=MAG) 1.9 mg/dL 1.8-2.4 [id number] 21:26:00* Test Item Value Reference Range Comments TROPONIN-I (test code=TROPI) <0.015 ng/mL 0-0.045 PROTHROMBIN [id number] 21:10:00* Test Item Value Reference Range Comments PROTHROMBIN TIME PATIENT (test code=PTP) 9.8 seconds 9.0-14.0 INTERNATIONAL NORMAL RATIO (test code=INR) 0.8 0.8-1.2 The therapeutic range for oral anticoagulant therapy formost indications is an international normalized ratio (INR)of between 2.0 and 3.0. The recommended therapeutic INRrange for various clinical situations is listed below: Clinical Situation INR range Pulmonary e mbolism treatment (2.0-3.0)Venous thrombosis treatmentVenous thrombosis prophylaxis (high risk surgery)Prevention of systemic embolism from: Acute myocardial infarction Valvular heart disease Atrial fibrillation Mechanical prosthetic heart valves (2.5-3.5) IS PATIENT ON ANTICOAGULANTS? NTHROMBOPLASTIN TIME [id number] 21:10:00* Test Item Value Reference Range Comments THROMBOPLASTIN TIME PARTIAL (test code=PTT) 25.9 seconds 25.0-36.5 IS PATIENT ON ANTICOAGULANTS? NBASIC METABOLIC [id number] 21:08:00* Test Item Value Reference Range Comments SODIUM (test code=NA) 139 mmol/L 136-145 POTASSIUM (test code=K) 3.9 mmol/L 3.5-5.1 CHLORIDE (test code=CL) 105.0 mmol/L 98-107 CARBON DIOXIDE (test code=CO2) mmol/L 21-32 ANION GAP (test code=GAP) 10-20 GLUCOSE (test code=GLU) mg/dL 74-106 BLOOD UREA NITROGEN (test code=BUN) mg/dL 7-18 GLOMERULAR FILTRATION RATE (test code=GFR) mL/min >=60 CREATININE (test code=CREAT) mg/dL 0.55-1.02 BUN/CREATININE RATIO (test code=BUN/CREA) 10-20 CALCIUM (test code=CA) mg/dL 8.5-10.1 HEPATIC FUNCTION [id number] 21:08:00* Test Item Value Reference Range Comments TOTAL PROTEIN (test code=PROT) gram/dL 6.4-8.2 ALBUMIN (test code=ALB) g/dL 3.4-5.0 GLOBULIN (test code=GLOB) gram/dL 2.7-4.2 ALBUMIN/GLOBULIN RATIO (test code=A/G) 0.75-1.50 BILIRUBIN TOTAL (test code=BILT) mg/dL 0.0-1.0 BILIRUBIN DIRECT (test code=BILD) mg/dL 0.0-0.20 SGOT/AST (test code=AST) IUnit/L 15-37 SGPT/ALT (test code=ALT) IUnit/L 12-78 ALKALINE PHOSPHATASE TOTAL (test code=ALKP) IUnit/L 45-117 [id number] 21:08:00* Test Item Value Reference Range Comments MAGNESIUM (test code=MAG) mg/dL 1.8-2.4 [id number] 21:08:00* Test Item Value Reference Range Comments TROPONIN-I (test code=TROPI) ng/mL 0-0.045 CBC W/O [id number] 21:01:00* Test Item Value Reference Range Comments WHITE BLOOD CELL (test code=WBC) 6.1 K/mm3 4.5-12.5 RED BLOOD CELL (test code=RBC) 4.73 mill/mm3 3.7-5.2 HEMOGLOBIN (test code=HGB) 12.7 gram/dL 11.5-15.5 HEMATOCRIT (test code=HCT) 38.3 % 36.0-46.0 MEAN CELL VOLUME (test code=MCV) 81.0 fL 80-98 MEAN CELL HGB (test code=MCH) 26.8 picogram 27.0-33.0 MEAN CELL HGB CONCETRATION (test code=MCHC) 33.2 gram/dL 33.0-36.0 RED CELL DISTRIBUTION WIDTH (test code=RDW) 14.8 % 11.6-16.2 PLATELET COUNT (test code=PLT) 216 K/mm3 150-450 MEAN PLATELET VOLUME (test code=MPV) 9.4 fL 6.7-11.0 CBC W/O [id number] 20:59:00* Test Item Value Reference Range Comments WHITE BLOOD CELL (test code=WBC) K/mm3 4.5-12.5 RED BLOOD CELL (test code=RBC) mill/mm3 3.7-5.2 HEMOGLOBIN (test code=HGB) 12.7 gram/dL 11.5-15.5 HEMATOCRIT (test code=HCT) 38.3 % 36.0-46.0 MEAN CELL VOLUME (test code=MCV) fL 80-98 MEAN CELL HGB (test code=MCH) picogram 27.0-33.0 MEAN CELL HGB CONCETRATION (test code=MCHC) gram/dL 33.0-36.0 RED CELL DISTRIBUTION WIDTH (test code=RDW) % 11.6-16.2 PLATELET COUNT (test code=PLT) K/mm3 150-450 MEAN PLATELET VOLUME (test code=MPV) fL 6.7-11.0 TROPONIN I [id number] 20:46:00* Test Item Value Reference Range Comments TROPONIN I RAPID (test code=TROPIRAP) 0.00 ng/mL <0.08 Please Note New Reference Range 0.00-0.079 ng/mL - Negative>or=0.08 ng/mL - Positive The use of serial sampling and testing protocol is arecommended practice.An elevated troponin level alone is often not sufficient fordiagnosis of myocardial infarction. Troponin results obtained by different assays may vary.Evaluation of the extent of myocardial damage based onincrease of troponin would be valid only if similarmethodology is used. - XR CHEST 1 [id number] 20:21:00 FAX: Jo Ann Mazariegos MD [phone] [place]: St: PRE Name: FRANCINE YOUSSEF [facility] : [birth year] Age/S: 58/F [address] [facility] Unit #: [id number] Loc: [place] [address] Phys: Jo Ann Mazariegos MD Acct: [id number] Dis Date: Status: PRE ER PHONE #: [phone] Exam Date: 07/06/20182009 FAX #: [phone] Reason: CHEST PAIN EXAMS: CPT CODE: [id number] XR CHEST 1 V [id number] HISTORY: CHEST PAIN TECHNIQUE: AP chest x-ray COMPARISON: 10/11/17 FINDIN GS: No airspace consolidation or pleural effusion. Mid right lung field calcified granuloma. Normal heart size. Mediastinal silhouette is unremarkable. Visualized osseous structures are grossly intact. IMPRESSION: No acute findings or significant interval antunez . at 2020 Reported and signed by: Abbey Lezama D.O. CC: Jo Ann Mazariegos MD Technologist: Hector Del Valle RT(R) Trnscrd Date/Time/By: 12/2018 (2020) : By: [email or web address] Orig Print D/T: S: 07/06/2018 (2038) PAGE [address] PELVIS BONE FX *WW*2018-05-15 22:17:30CT SCAN OF THE PELVIS WITHOUT CONTRASTLocation: [id number] HISTORY: Pelvic pain evaluate for fractureTECHNIQUE: Helical CT of the pelvis was performed without IV or oralcontrast. Without complication. Coronal and Sagittal reconstructions wereobtained. This exam was performed according to our departmental dose -optimizationprogram, which includes automatic exposure control, adjustment of mA and/or kVaccording to patient size and/or use of iterative reconstruction technique.DLP: 1169 mGY*cmFINDINGS: There is no evidence of intrapelvic free f luid. There has been priorhysterectomy. No pelvic mass. SI joints and pubic symp hysis are intact. Milddegenerative changes are seen at both hips. No evidence of acute fracture ordislocation. There is obesity. There is no focal hematoma. No radiopaqueforeign body from the trauma is noted.IMPRESSION:No acute findings.CT LUMBAR SPINE W/O CONTRAST *WW*2018-05-15 21:47:19CT LUMBAR SPINE WITHOUT CONTRASTLocation: [id number] history back pain after traumaTechnique:Helical axial CT scan was performed without IV or intrathecal contrast. Thelack of intrathecal contrast limits evaluation of the intracanalicular softtissues. Coronal and sagittal images were reconstructed. Images were reviewedin both bone and soft tissue windows. This exam was performed according to our departmental dose -optimizationprogram, which includes automatic exposure control, adjustment of mA and/or kVaccording to patient size and/or use of iter ative reconstruction technique.DLP: 1018 mGy/cm*Findings:There is no evidenc e of fracture or paravertebral hematoma. At L1-2, there is no evidence for disc bulge or protrusion, central spinalcanal or foraminal stenosis. There is mild a nterior endplate spurring.At L2-3, there is 1 to 2 mm of disc bulging with mild endplate spurring mildlyflattening the ventral thecal sac. There is mild to mode rate hypertrophic facetarthropathy and ligamentum flavum thickening. The foramen appear intact.L3-4, there is mild endplate spurring which combines with moderate hypertrophicfacet arthropathy and ligamentum flavum thickening for mild central spinalcanal stenosis.At L4-5, there is moderate endplate spurring at 2 mm of a nterolisthesis. Thereis marked hypertrophic facet arthropathy with degenerative gas at the facetjoints. There is mild narrowing of the foramen. No evidence of p arsspondylolysis.L5-S1, there is mild endplate spurring and 3 mm disc bulging. T here is mild tomoderate hypertrophic facet arthropathy more prominent on the rig ht. There ismild narrowing of the foramen.Above dictation assumes 5 lumbar=type vertebral bodies.There is no paravertebral hematoma.IMPRESSION:1. 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 No acute abnormality demonstrated.XR Chest 2 [id number] 20:29:39Patient: FRANCINE ENCARNACION Date/Time04/24/2018 20:10 CSTReason for ExamCoughReportExam: Chest 2 viewsLocation: [id number]: CoughComparison: 07/01/2007Findings:The lungs are clear. The pulmonary vasculature is normal. The heart size is upper normal. The mediastinal silhouette is unremarkable. The bony thorax is intact with degenerative changes noted.Impression:No acute disease. Final Dictated by: MD Garcia Francesco MDictated DT/TM: 04/24/2018 8:29 pmSigned by: MD Garcia Francesco MSigned (Electronic Signature): 04/24/2018 8:29 pm
--- OUTSIDE RECORDS SUMMARY | 2018-12-20 15:43 | XMS REPORT ---
Author Author Admin, [employer] Organization [facility] Address [address] [place] [address] [place] [address] Phone Allergies, Adverse Reactions, Alerts Allergy Name Reaction Description Start Date Severity Status Provider CECLOR Critical Active Joseph West MD MORPHINE Critical Active Joseph West MD BACTRIM Critical Active Joseph West MD PENICILLIN Critical Active Joseph West MD Conditions or Problems Problem Name Problem Code Onset Date Status Entry Date Provider Comment Standard Description Annotate Hypothyroidism 244.9 Active Joseph West MD Unspecified hypothyroidism Cough 786.2 Active Joseph West MD Cough Callus, right foot 700 Active Joseph West MD Corns and callosities Wrist joint pain, right 719.43 Active Pat Aranda DO Pain in joint involving forearm Wart 078.10 Active Pat Rosi DO Viral warts, unspecified Foot Rheumatoid arthritis, chronic 714.0 Active Pat Rosi DO Rheumatoid arthritis Ulcerative colitis 556.9 Active Pat Rosi DO Ulcerative colitis, unspecified Depression / anxiety 300.4 Active Pat Rosi DO Dysthymic disorder Astigmatism, bilateral 367.20 Active Faisal Rne OD Astigmatism, unspecified Hyperopia, bilateral 367.0 Active Faisal Ren OD Hypermetropia Melena 578.1 Active Traci Trivedi MD Blood in stool Presbyopia - OU 367.4 Active Faisal Ren OD Presbyopia Chronic obstructive lung disease with acute bronchitis 491.22 Active Traci Trivedi MD Obstructive chronic bronchitis with acute bronchitis Neuropathy, peripheral 356.9 Active Pat Philippeey DO Unspecified hereditary and idiopathic peripheral neuropathy UE bialteral Urinary incontinence 788.30 Active Pat Aranda DO Urinary incontinence, unspecified Hand pain, bilateral 729.5 Active Lisset Peña MD Pain in limb Hypertriglyceridemia 272.1 Active Lisset Peña MD Pure hyperglyceridemia MORBID OBESITY Active Lisset Peña MD Morbid obesity Hearing loss 389.9 Active Joseph West MD Unspecified hearing loss Diabetes mellitus, type II 250.00 Active Joseph West MD Diabetes mellitus without mention of complication, type II or unspecified type, not stated as uncontrolled Hypertension 401.1 Active Joseph West MD Benign essential hypertension Smoker 305.1 Active Joseph West MD Tobacco use disorder Cellulitis, abdomen ICD-682.2 Inactive Pat Rosi DO Spider bite (not billable after 01/28/2017) ICD-959.9 Inactive Pat Rosi DO Screening for hepatitis ICD-V73.89 Inactive Pat Rosi DO Immunization due ICD-V15.83 Inactive Pat Rosi DO Preventive health care, adult ICD-V70.0 Inactive Pat Rosi DO Nasal sinus congestion ICD-478.19 Inactive Pat Rosi DO Urinary urgency ICD-788.63 Inactive Patalf Aranda DO Joint stiffness, hand ICD-719.54 Inactive Pat Rosi DO BMI 40.0-44.9 Inactive Lisset Peña MD Elevated ferritin ICD-790.6 Inactive Pat Rosi DO Leukocytosis ICD-288.60 Inactive Pat Rosi DO Hx of lobe thyroidectomy, right ICD-V45.89 Inactive Pat Rosi DO Iron deficiency anemia ICD-280.9 Inactive Pat Rosi DO Screening mammogram for breast cancer ICD-V76.12 Inactive Lisset Peña MD Deviated nasal septum ICD-470 Inactive Pat Rosi DO Cellulitis, abdomen 682.2 Resolved Pat Aranda DO Cellulitis and abscess of trunk Spider bite (not billable after 01/28/2017) 959.9 Resolved Pat Aranda DO Other and unspecified injury to unspecified site Screening for hepatitis V73.89 Resolved Pat Aranda DO Screening examination for other specified viral diseases Immunization due V15.83 Resolved Pat Aranda DO Personal history of underimmunization status Preventive health care, adult V70.0 Resolved Pat Aranda DO Routine general medical examination at a health care facility Nasal sinus congestion 478.19 Resolved Pat Aranda DO Other disease of nasal cavity and sinuses Urinary urgency 788.63 Resolved Pat Aranda DO Urgency of urination Joint stiffness, hand 719.54 Resolved Pat Aranda DO Stiffness of joint, not elsewhere classified, involving hand BMI 40.0-44.9 Resolved Lisset Peña MD Body Mass Index 40.0-44.9, adult Elevated ferritin 790.6 Resolved Pat Aranda DO Other abnormal blood chemistry Leukocytosis 288.60 Resolved Pat Aranda DO Leukocytosis, unspecified Hx of lobe thyroidectomy, right V45.89 Resolved Pat Aranda DO Other postsurgical status Iron deficiency anemia 280.9 Resolved Pat Aranda DO Iron deficiency anemia, unspecified Screening mammogram for breast cancer V76.12 Resolved Lisset Peña MD Other screening mammogram Deviated nasal septum 470 Resolved Pat Aranda DO Deviated nasal septum Medication List Medication Instructions Start Date Stop Date Generic Name NDC Status Provider Patient Instruction BROMFED DM 30-2-10 MG/5ML ORAL SYRUP take 2 tsp By Mouth Every 8 hrs as needed for cough [id number] 29976458912 Active Joseph West MD Active PROAIR HFA AER INHALE 2 PUFFS BY MOUTH EVERY 4-6 HOURS NEEDED ALBUTEROL SULFATE 28628223788 Diogenes West MD Active LEVOTHYROXINE SODIUM 25 MCG ORAL TABLET One tab by mouth daily LEVOTHYROXINE SODIUM 56840793351 Diogenes West MD Active LOSARTAN POTASSIUM-HCTZ 100-25 MG ORAL TABLET take one tab By Mouth Every Day LOSARTAN POTASSIUM-HCTZ 40755992082 Diogenes West MD Active SPIRIVA HANDIHLR CAP INHALE CONTENTS OF ONE CAPSULE DAILY USING HANDIHALER DEVICE TIOTROPIUM BROMIDE MONOHYDRATE 00709992293 Diogenes West MD Active SYMBICORT 160-4.5 AER INHALE 1 PUFF BY MOUTH TWICE A DAY *RINSE MOUTH WITH WATER AFTER EACH USE* BUDESONIDE-FORMOTEROL FUMARATE 10251438474 Active Joseph West MD Active HUMALOG 100 U/ML KWIK PEN INJ 3ML INJECT 30 UNITS THREE TIMES DAILY BEFORE MEALS INSULIN LISPRO 60456285522 Active Traci Trivedi MD Active OMEPRAZOLE 20 MG ORAL CAPSULE DELAYED RELEASE 1 by mouth every day OMEPRAZOLE 95028744752 Active Saskia Charlton Silvano DO Active [employer] SURESOFT LANCING DEV use as directed to check BS Three Times a Day LANCETS MISC. 86620674755 Active Joseph Wets MD Active [employer] ULTRA 2 W/DEVICE KIT use as directed to check BS Three Times a Day BLOOD GLUCOSE MONITORING SUPPL 64632020981 Active Joseph West MD Active [employer] ULTRA BLUE IN VITRO STRIP use as directed to check BS Three Times a Day GLUCOSE BLOOD 10733895708 Active Joseph West MD Active PEN NEEDLES 30G X 5 MM check blood sugars 3 times a day INSULIN PEN NEEDLE 19640963194 Active Joseph West MD Active ANUSOL-HC 2.5 % RECTAL CREAM apply rectally twice a day/3 times a day as needed HYDROCORTISONE (RECTAL) 43093455597 Active Jeannie Edwards MD Active SENNA-DOCUSATE SODIUM 8.6-50 MG ORAL TABLET one tablet twice daily as needed for constipation SENNOSIDES-DOCUSATE SODIUM 06045622915 Active Traci Trivedi MD Active OXYBUTYNIN CHLORIDE 5 MG ORAL TABLET one tablet by mouth twice a day OXYBUTYNIN CHLORIDE 28655585964 Active Traci Trivedi MD Active ASPIRIN 81 MG ORAL TABLET DELAYED RELEASE 1 by mouth every day ASPIRIN 62706531091 Active Traci Trivedi MD Active ATORVASTATIN CALCIUM 20 MG ORAL TABLET take 1 tablet By Mouth at bedtime ATORVASTATIN CALCIUM 09544068840 Active Joseph West MD Active CETIRIZINE HCL 10 MG ORAL TABLET take 1 tablet By Mouth daily CETIRIZINE HCL 29499338078 Active Traci Trivedi MD Active DIOVAN HCT 320-25 MG ORAL TABLET one table by mouth daily VALSARTAN-HYDROCHLOROTHIAZIDE 55723017045 Active Joseph West MD Active LEVOTHYROXINE SODIUM 25 MCG ORAL TABLET One tab by mouth daily LEVOTHYROXINE SODIUM 40013294867 Active Saskia Schaefer DO Active METFORMIN HCL 1000 MG ORAL TABLET 1 by mouth twice a day METFORMIN HCL 38300432501 Active Joseph West MD Active TRESIBA FLEXTOUCH 100 UNIT/ML SUBCUTANEOUS SOLUTION PEN-INJECTOR 80 units SC Twice a Day INSULIN DEGLUDEC 94799951808 Active Joseph West MD Active CARVEDILOL 3.125 MG ORAL TABLET 1 pill twice a day CARVEDILOL 58659327174 Active Joseph West MD Active GABAPENTIN 600 MG ORAL TABLET one tablet By Mouth Three Times a Day GABAPENTIN 08126093851 Active Joseph West MD Active IBUPROFEN 800 MG ORAL TABLET 1 by mouth every 8 hours as needed for pain. take with food IBUPROFEN 18709193283 Active Pat Aranda DO Active IBUPROFEN 200 MG ORAL TABLET 1-2 by mouth every 8 hours as needed IBUPROFEN 200 MG ORAL TABLET 958800 IBUPROFEN Inactive CIPRO 250 MG ORAL TABLET 1 by mouth twice a day CIPRO 250 MG ORAL TABLET 161740 CIPROFLOXACIN HCL Inactive JUAN C-D ALLERGY & CONGESTION 60-120 MG ORAL TABLET EXTENDED RELEASE 12 HOUR one tablet By Mouth Twice a Day as needed JUAN C-D ALLERGY & CONGESTION 60-120 MG ORAL TABLET EXTENDED RELEASE 12 HOUR FEXOFENADINE-PSEUDOEPHEDRINE Inactive CHERATUSSIN AC 100-10 MG/5ML ORAL SYRUP 1-2 teaspoons By Mouth take at bedtime CHERATUSSIN AC 100-10 MG/5ML ORAL SYRUP 368984 GUAIFENESIN-CODEINE Inactive DOXYCYCLINE HYCLATE 100 MG ORAL CAPSULE 1 by mouth twice a day DOXYCYCLINE HYCLATE 100 MG ORAL CAPSULE 8465687 DOXYCYCLINE HYCLATE Inactive IBUPROFEN 200 MG ORAL TABLET 1-2 by mouth every 8 hours as needed IBUPROFEN 31489985365 No Longer Active Pat Aranda DO Active CIPRO 250 MG ORAL TABLET 1 by mouth twice a day CIPROFLOXACIN HCL 81259650247 No Longer Active Pat Aranda DO Active JUAN C-D ALLERGY & CONGESTION 60-120 MG ORAL TABLET EXTENDED RELEASE 12 HOUR one tablet By Mouth Twice a Day as needed FEXOFENADINE-PSEUDOEPHEDRINE 49320403802 No Longer Active Pat Aranda DO Active CHERATUSSIN AC 100-10 MG/5ML ORAL SYRUP 1-2 teaspoons By Mouth take at bedtime GUAIFENESIN-CODEINE 91865734034 No Longer Active Pat Aranda DO Active DOXYCYCLINE HYCLATE 100 MG ORAL CAPSULE 1 by mouth twice a day DOXYCYCLINE HYCLATE 11064539280 No Longer Active Pat Aranda DO Active LEVEMIR FLEXTOUCH 100 UNIT/ML SUBCUTANEOUS SOLUTION PEN-INJECTOR inject 80 units SQ Twice a Day INSULIN DETEMIR 34905509268 No Longer Active Traci Trivedi MD Active LISINOPRIL-HYDROCHLOROTHIAZIDE 10-12.5 MG ORAL TABLET 1 by mouth daily LISINOPRIL-HYDROCHLOROTHIAZIDE 09639650140 No Longer Active Lisset Peña MD Active TOUJEO MAX SOLOSTAR 300 UNIT/ML SUBCUTANEOUS SOLUTION PEN-INJECTOR 80 units SC Twice a Day INSULIN GLARGINE 18099149885 No Longer Active Pat Aranda DO Active Advance Directives Directive Description Start Date DISCUSSED - NO DECISION MADE Immunizations Vaccine Administration Date Value Standard Description influenza immunization (Flu Vax) has been administered given influenza virus vaccine, unspecified formulation Vital Signs Date Name Value Unit Range Description blood pressure, diastolic, second observation 66 mm[Hg] BP salmon blood pressure, diastolic 71 mm[Hg] BP salmon blood pressure, systolic, second observation 126 mm[Hg] BP sys blood pressure, systolic 114 mm[Hg] BP sys height E&M 65 [in_us] Bdy height pulse rate E&M 100 /min Heart rate respiratory rate E&M 18 /min Resp rate temperature E&M 98.5 [degF] Body temperature weight E&M 239.60 [lb_av] Weight Measured blood pressure, diastolic 77 mm[Hg] BP salmon blood pressure, systolic 113 mm[Hg] BP sys height E&M 65 [in_us] Bdy height pulse rate E&M 95 /min Heart rate respiratory rate E&M 18 /min Resp rate temperature E&M 98.1 [degF] Body temperature weight E&M 233.25 [lb_av] Weight Measured blood pressure, diastolic 81 mm[Hg] BP salmon blood pressure, systolic 131 mm[Hg] BP sys height E&M 65 [in_us] Bdy height pulse rate E&M 108 /min Heart rate respiratory rate E&M 18 /min Resp rate temperature E&M 98.2 [degF] Body temperature weight E&M 224.13 [lb_av] Weight Measured blood pressure, diastolic, second observation 100 mm[Hg] BP salmon blood pressure, diastolic 89 mm[Hg] BP salmon blood pressure, systolic, second observation 168 mm[Hg] BP sys blood pressure, systolic 149 mm[Hg] BP sys height E&M 65 [in_us] Bdy height pulse rate E&M 106 /min Heart rate respiratory rate E&M 18 /min Resp rate temperature E&M 98.4 [degF] Body temperature weight E&M 224.38 [lb_av] Weight Measured blood pressure, diastolic 88 mm[Hg] BP salmon blood pressure, systolic 136 mm[Hg] BP sys height E&M 65 [in_us] Bdy height pulse rate E&M 107 /min Heart rate respiratory rate E&M 18 /min Resp rate temperature E&M 98.1 [degF] Body temperature weight E&M 226.13 [lb_av] Weight Measured blood pressure, diastolic, second observation 93 mm[Hg] BP salmon blood pressure, diastolic 97 mm[Hg] BP salmon blood pressure, systolic, second observation 173 mm[Hg] BP sys blood pressure, systolic 158 mm[Hg] BP sys height E&M 65 [in_us] Bdy height pulse rate E&M 105 /min Heart rate respiratory rate E&M 18 /min Resp rate temperature E&M 98.0 [degF] Body temperature weight E&M 225.38 [lb_av] Weight Measured blood pressure, diastolic 82 mm[Hg] BP salmon blood pressure, systolic 131 mm[Hg] BP sys height E&M 65 [in_us] Bdy height pulse rate E&M 98 /min Heart rate temperature E&M 98.7 [degF] Body temperature weight E&M 240 [lb_av] Weight Measured Diagnostic Results Date Name Value Unit Range Description Lab Report: CBC With Differential/Platelet, TSH Rfx on Abnormal to Free ... - Chemistry thyroid stimulating hormone, serum 3.540 u[iU]/mL 0.450-4.500 Office Visit: Chronic bronchitis/COPD, HTN, DM2 - Chemistry beta HCG, urine, semiquantitative negative Lab Report: Comp. Metabolic Panel (14), Lipid Panel, Hemoglobin A1c - Chemistry very low density lipoproteins 60 mg/dL 5-40 Lab Report: HCV Antibody, HBsAg Screen - Chemistry hepatitis B surface antigen Negative Negative Lab Report: Comp. Metabolic Panel (14), Lipid Panel, Hemoglobin A1c - Chemistry chloride, serum 97 mmol/L 96-106 urea nitrogen, blood 13 mg/dL 6-24 Office Visit: Chronic bronchitis/COPD, HTN, DM2 - Urinalysis leukocyte esterase, urine, by dipstick 1+ Lab Report: CBC With Differential/Platelet - Hematology mean corpuscular hemoglobin concentration, RBC 33.3 G/DL % 31.5-35.7 erythrocyte (RBC) count 5.04 X10E6/UL 10*6/mm3 3.77-5.28 Office Visit: Chronic bronchitis/COPD, HTN, DM2 - Urinalysis nitrite, urine, semiquantitative negative Lab Report: HCV Antibody, HBsAg Screen - Serology hepatitis C antibody, serum 0.1 0.0-0.9 Office Visit: Chronic bronchitis/COPD, HTN, DM2 - Urinalysis urine color yellow Lab Report: CBC With Differential/Platelet - Chemistry Absolute Neutrophils 4.2 X10E3/UL 10*3/uL 1.4-7.0 Office Visit: Chronic bronchitis/COPD, HTN, DM2 - Urinalysis bilirubin, urine negative Lab Report: Comp. Metabolic Panel (14), Lipid Panel, Hemoglobin A1c - Chemistry LDL cholesterol, serum 126 mg/dL 0-99 urea nitrogen/creatinine ratio, serum 21 9-23 Internal Correspondence: Pre-Visit Planning - [employer] delivery vehicle team technician #1, name Emmie Nesbitt Lab Report: CBC With Differential/Platelet - Hematology mean corpuscular volume, RBC 82 fL 79-97 Lab Report: Comp. Metabolic Panel (14), Lipid Panel, Hemoglobin A1c - Chemistry HDL cholesterol, serum 36 mg/dL >39 Lab Report: CBC With Differential/Platelet - Hematology monocytes as percent of blood leukocytes 6 % Not Estab. Lab Report: CBC With Differential/Platelet, TSH Rfx on Abnormal to Free ... - Chemistry ferritin, serum 171 ng/mL 15-150 Lab Report: Comp. Metabolic Panel (14), Lipid Panel, Hemoglobin A1c - Chemistry albumin/globulin ratio, serum 1.3 1.2-2.2 creatinine, serum 0.63 mg/dL 0.57-1.00 cholesterol, serum 222 mg/dL 100-199 Lab Report: Microalb/Creat Ratio, [facility] - Chemistry creatinine, random, urine 122.2 mg/dL Not Estab. Lab Report: Comp. Metabolic Panel (14), Lipid Panel, Hemoglobin A1c - Chemistry bilirubin, serum, total 0.3 mg/dL 0.0-1.2 Lab Report: CBC With Differential/Platelet - Hematology Eosinophil Absolute Count 0.1 X10E3/UL 10*3/uL 0.0-0.4 Office Visit: Chronic bronchitis/COPD, HTN, DM2 - Urinalysis blood in urine (hemoglobin) by dipstick negative appearance, urine clear Lab Report: Comp. Metabolic Panel (14), Lipid Panel, Hemoglobin A1c - Chemistry aspartate aminotransferase (SGOT), serum 10 U/L 0-40 Lab Report: CBC With Differential/Platelet - Hematology red blood cell distribution width 14.7 % 12.3-15.4 leukocyte count, blood 8.1 X10E3/UL 10*3/mm3 3.4-10.8 Office Visit: Chronic bronchitis/COPD, HTN, DM2 - Urinalysis pH, urine, semiquantitative 6.0 Lab Report: Comp. Metabolic Panel (14), Lipid Panel, Hemoglobin A1c - Chemistry potassium, serum 4.7 mmol/L 3.5-5.2 albumin, serum 4.1 g/dL 3.5-5.5 Lab Report: CBC With Differential/Platelet - Chemistry immature granulocytes, percentage of total cells, blood 0 % Not Estab. Lab Report: CBC With Differential/Platelet - Hematology lymphocyte count, blood, automated 3.2 X10E3/UL 10*3/mm3 0.7-3.1 hematocrit, blood 41.2 % 34.0-46.6 Lab Report: Comp. Metabolic Panel (14), Lipid Panel, Hemoglobin A1c - Chemistry sodium, serum 135 mmol/L 134-144 Lab Report: CBC With Differential/Platelet - Hematology neutrophils as percent of blood leukocytes 52 % Not Estab. Office Visit: Cellulitis, rectal pain - Chemistry occult blood, stool (E&M) negative Lab Report: CBC With Differential/Platelet - Hematology basophils as percent of blood leukocytes 0 % Not Estab. Office Visit: Chronic bronchitis/COPD, HTN, DM2 - Urinalysis protein, urine, semiquantitative (dipstick) negative Lab Report: Comp. Metabolic Panel (14), Lipid Panel, Hemoglobin A1c - Chemistry carbon dioxide, venous blood 21 mmol/L 20-29 triglyceride, serum, fasting 302 mg/dL 0-149 calcium, serum 9.5 mg/dL 8.7-10.2 Lab Report: Microalb/Creat Ratio, [facility] - Chemistry microalbumin/creatinine ratio, urine 8.1 MG/G CREAT ug/mg 0.0-30.0 Lab Report: Comp. Metabolic Panel (14), Lipid Panel, Hemoglobin A1c - Chemistry alanine aminotransferase (SGPT), serum 17 U/L 0-32 Lab Report: CBC With Differential/Platelet - Hematology mean corpuscular hemoglobin, RBC 27.2 pg 26.6-33.0 Office Visit: Chronic bronchitis/COPD, HTN, DM2 - Urinalysis specific gravity, urine 1.030 Lab Report: Comp. Metabolic Panel (14), Lipid Panel, Hemoglobin A1c - Chemistry protein, total, serum 7.2 g/dL 6.0-8.5 alkaline phosphatase, serum 127 U/L 39-117 Lab Report: CBC With Differential/Platelet - Hematology hemoglobin, blood 13.7 g/dL 11.1-15.9 lymphocytes as percent of blood leukocytes 40 % Not Estab. Append: Adult Followup- DM, refills, allergies - Chemistry hemoglobin A1C, blood, as % of total hemoglobin 9.3 % Office Visit: Chronic bronchitis/COPD, HTN, DM2 - Urinalysis glucose, urine, semiquantitative negative Lab Report: Comp. Metabolic Panel (14), Lipid Panel, Hemoglobin A1c - Genetics/fertility eGFR if 116 mL/min/1.73m2 >59 Lab Report: CBC With Differential/Platelet - Hematology basophil count, absolute 0.0 x10E3/uL 0.0-0.2 Lab Report: Comp. Metabolic Panel (14), Lipid Panel, Hemoglobin A1c - Chemistry globulin, serum 3.1 1.5-4.5 Estimated Glomerular Filtration Rate (calc) 101 mL/min/1.73m2 >59 Lab Report: Microalb/Creat Ratio, [facility] - Urinalysis microalbumin/total urine volume 9.9 mg/L Not Estab. Lab Report: CBC With Differential/Platelet - Hematology eosinophils as percent of blood leukocytes 2 % Not Estab. Lab Report: CBC With Differential/Platelet, TSH Rfx on Abnormal to Free ... - Chemistry triiodothyronine (T3), serum 124 ng/dL 71-180 Lab Report: Comp. Metabolic Panel (14), Lipid Panel, Hemoglobin A1c - Chemistry blood glucose, random 374 mg/dL 65-99 Office Visit: Chronic bronchitis/COPD, HTN, DM2 - Urinalysis urobilinogen, urine, semiquantitative (dipstick) negative Lab Report: CBC With Differential/Platelet - Hematology monocyte count, blood, automated 0.5 X10E3/UL 10*3/uL 0.1-0.9 platelet count 300 X10E3/UL 10*3/mm3 150-379 Office Visit: Chronic bronchitis/COPD, HTN, DM2 - Urinalysis ketones, urine, by test strip negative Encounters Date Encounter Provider Code Facility 14:07:00 CDT Est Patient Exp Problem - 31372 Joseph West MD CPT-40768 [facility] 11:43:10 CDT Est Patient Exp Problem - 04366 Joseph West MD CPT-62099 [facility] 16:41:37 CDT Est Patient Exp Problem - 27249 Joseph West MD CPT-53909 [facility] 12:07:41 CDT Est Patient Exp Problem - 13361 Joseph West MD CPT-14378 [facility] 16:57:50 GROUP CAPTAIN Est Patient Exp Problem - 25253 Joseph West MD CPT-15490 [facility] 08:35:53 GROUP CAPTAIN Est Patient Exp Problem - 05932 Joseph West MD CPT-38445 [facility] 15:32:29 GROUP CAPTAIN Est Patient Exp Problem - 09104 Pat Rosi DO CPT-21992 [facility] 15:30:50 CDT Est Patient Detailed - 72352 Saskia Latesha Schaefer DO CPT-75038 [facility] 14:33:29 CDT Est Patient Detailed - 27748 Pat Rosi DO CPT-73913 [facility] 16:38:37 GROUP CAPTAIN Est Patient Detailed - 87569 Pat Rosi DO CPT-04011 [facility] 13:43:49 GROUP CAPTAIN Est Patient Detailed - 24409 Traci Trivedi MD CPT-43016 [facility] 16:11:34 CDT Est Patient Exp Problem - 63544 Pat Rosi DO CPT-19487 [facility] 15:09:31 CDT Est Patient Detailed - 29919 Lisset Peña MD CPT-56898 [facility] 09:26:12 CDT Est Patient Exp Problem - 50333 Joseph West MD CPT-77348 [facility] 14:11:46 CDT New Patient Detailed - 16760 Joseph West MD CPT-83854 [facility] Procedures Code Procedure Name Date Entry Date Standard Description CPT-HE001 Health Education/Supportive Counseling 11:45:21 GROUP CAPTAIN CPT-72630 New Patient Intermediate Opth - 60724 15:38:07 GROUP CAPTAIN CPT-25159 Handling of specimen for transfer 13:43:49 GROUP CAPTAIN CPT-46323 Venipuncture 13:43:49 GROUP CAPTAIN CPT-33479 INFLUENZA VACCINE QUADRIVALENT 3 YRS PLUS IM 14:52:33 CDT CPT-77481 Admin of Vaccine - Injection - 1 14:52:33 CDT CPT-31131 Glucose Stick 14:52:27 CDT CPT-54053 Urinalysis - Dip only - In House 14:52:25 CDT
[2018-12-20] MEDS ORDERED: SODIUM CHLORIDE 0.9% 1000ML 1,000 ML IV STA (17:36)
[2018-12-20] MEDS ORDERED: ONDANSETRON HCL INJ 2MG/ML 2ML 2 MG/ML VIAL IV STA (17:36)
[2018-12-20] MEDS ORDERED: MORPHINE SULFATE INJ 4 MG/ML INJ 1ML IV STA (17:36)
[2018-12-20 18:14] LABS: BILIRUBIN,URINE SMALL (NEGATIVE); CLARITY,URINE CLOUDY (CLEAR); COLOR,URINE YELLOW (YELLOW); KETONES,URINE TRACE (NEGATIVE); LEUKOCYTE ESTERASE ,URINE MODERATE (NEGATIVE); NITRITE,URINE NEGATIVE (NEGATIVE); PROTEIN,URINE DIPSTICK 1+ (NEGATIVE); URINE UROBILINOGEN 0.2 mg/dL (0.2 - 1)
[2018-12-20 18:33] LABS: BACTERIA,URINE MODERATE /HPF; EPITHELIAL CELLS,URINE MANY /LPF; TRANSITIONAL EPI CELLS,URINE MANY
[2018-12-20] MEDS ORDERED: ACETAMINOPHEN 1000 MG/100 ML IV STA (18:57)
--- NOTE | 2018-12-20 19:00 | Diagnostic Imaging Report ---
RIGHT FOOT - 3 Image(s) HISTORY: Ulcer, rule out osteomyelitis, great toe COMPARISON: None available. FINDINGS: Bones: Radiographs have limited sensitivity for detection of osteomyelitis. No acute displaced fracture. No aggressive osseous lesion. Small plantar calcaneal and dorsal calcaneal enthesophytes. Joints: Multifocal degenerative changes, most notably moderate of the tibiotalar joint. Soft tissues: Nonspecific soft tissue swelling. IMPRESSION: No radiographic evidence of osteomyelitis. Signed by: Dr. Julio Dee D.O., M.M.M. on 12/20/2018 6:57 PM
[2018-12-20 19:22] LABS: BASOPHILS % 0.2 % (0.0-1.0); EOSINOPHILS # (AUTO) 0.2 (0.0-0.4); HEMATOCRIT 41.8 % (34.2-44.1); HEMOGLOBIN 13.8 g/dL (12.0-16.0); LYMPHOCYTES # (AUTO) 3.7 (1.0-3.2); MEAN CORPUSCULAR HEMOGLOBIN 26.8 pg (28-32); MEAN CORPUSCULAR VOLUME 81.3 fL (81-99); MONOCYTES # (AUTO) 0.5 (0.2-0.8); MONOCYTES % 5.6 % (4.4-11.3); NEUTROPHILS # (AUTO) 4.3 (2.1-6.9); NEUTROPHILS % 48.9 % (38.7-80.0); PLATELET COUNT 308 x10e3/uL (140-360); RED BLOOD COUNT 5.14 x10e6/uL (3.6-5.1); RED CELL DISTRIBUTION WIDTH 14.3 % (11.7-14.4)
[2018-12-20 19:42] LABS: ALBUMIN 3.7 g/dL (3.5-5.0); ALBUMIN/GLOBULIN RATIO 0.9 (0.8-2.0); ANION GAP 14.7 mmol/L (8-16); CALCIUM 9.7 mg/dL (8.4-10.2); CREATININE, SERUM 1.07 mg/dL (0.57-1.11); POTASSIUM 3.7 mmol/L (3.5-5.1)
[2018-12-20] MEDS ORDERED: CEFTRIAXONE SOD 1 GM VIAL IV ONE (19:45)
[2018-12-20 20:10] LABS: CREATINE KINASE MB 2.2 ng/mL (0-5.0)
[2018-12-20] MEDS ORDERED: IOPAMIDOL 370 MG/ML 200 ML INFUS..BTL INJ ONE (20:25)
[2018-12-20] MEDS ORDERED: SODIUM CHLORIDE 0.9% 50ML 50 ML ONE (20:25)
--- NOTE | 2018-12-20 21:00 | Diagnostic Imaging Report ---
EXAM: CT of the abdomen and pelvis WITH contrast HISTORY: Lower abdominal pain, nausea, vomiting, history of cholecystectomy, appendectomy, hysterectomy COMPARISON: None. TECHNIQUE: The abdomen and pelvis were scanned utilizing a multidetector helical scanner. Coronal and sagittal reformats are provided. PROTOCOL: Routine IV CONTRAST: 100 cc of Isovue-[id number]. ORAL CONTRAST: Water RADIATION DOSE: Total DLP: 779.15 mGy*cm Estimated effective dose: (DLP x 0.015 x size factor) Dose modulation, iterative reconstruction, and/or weight based adjustment of the mA/kV was utilized to reduce the radiation dose to as low as reasonably achievable. COMPLICATIONS: None FINDINGS: LOWER THORAX: Mild elevation of the left hemidiaphragm. HEPATOBILIARY: No mass. No biliary dilation. Cholecystectomy clips. SPLEEN: No splenomegaly. PANCREAS: No focal masses or ductal dilatation. Diffuse parenchymal atrophy. ADRENALS: The majority of the adrenal glands appear enlarged, but there does appear to be areas of normal gland which suggest bilateral nodules, 2.2 x 1.3 on the right and 3.6 x 1.0 and the left. KIDNEYS/URETERS: No hydronephrosis, stones, or definite solid mass lesions. PELVIC ORGANS/BLADDER: The visualized pelvic organs appear unremarkable. GI TRACT: No dilation or wall thickening identified. The cecum is within the right upper quadrant the abdomen. PERITONEUM / RETROPERITONEUM: No free air or fluid. LYMPH NODES: No pathologically enlarged lymph node. VESSELS: Diffuse scattered atherosclerotic vascular calcifications. BONES and JOINTS: No aggressive osseous lesion or acute fracture. SOFT TISSUES: A small fat-containing umbilical hernia, without associated inflammatory changes to suggest vascular compromise. IMPRESSION: 1. 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 2. Suspected bilateral adrenal nodules, recommend a follow-up nonemergent MRI or CT of the abdomen with and without contrast (adrenal mass protocol) for further characterization. Signed by: Dr. Julio Dee D.O., M.M.M. on 12/20/2018 8:56 PM
[2018-12-20 22:27] VITALS: BP 119/76
== END 2018-12-20 22:00 | disposition home or self-care (01) ==
LOC: ER 15:39
DX: N39.0 Urinary tract infection, site not specified (principal); R10.84 Generalized abdominal pain; E11.621 Type 2 diabetes mellitus with foot ulcer; E11.40 Type 2 diabetes mellitus with diabetic neuropathy, unspecified; L97.519 Non-pressure chronic ulcer of other part of right foot with unspecified severity; I10 Essential (primary) hypertension; J44.9 Chronic obstructive pulmonary disease, unspecified; E03.9 Hypothyroidism, unspecified; M79.7 Fibromyalgia; M41.9 Scoliosis, unspecified; M19.90 Unspecified osteoarthritis, unspecified site; F31.9 Bipolar disorder, unspecified
CPT/HCPCS: 36415; 73630; 74177; 80053; 81001; 82550; 82553; 83605; 84484; 85025; 87040; 87086; 99284; J0131; J2405; J7030; Q9967